=== PATIENT | female | born 1930 | race Caucasian/White ===

== ENCOUNTER 2017-10-13 11:09 | Outpatient (CLI) ==
[2017-08-03 16:02] VITALS: BMI 18.7
== END 2017-10-13 11:10 | disposition home or self-care (01) ==
LOC: NONPT 11:09
PROVIDERS: ATTEND Internal Medicine
DX: I10 Essential (primary) hypertension (principal); Z79.899 Other long term (current) drug therapy
CPT/HCPCS: 80053; 85025

== ENCOUNTER 2018-04-01 20:03 | Outpatient (CLI) ==
[2017-08-03 16:02] VITALS: BMI 18.7
== END 2018-04-01 20:45 | disposition short-term general hospital (02) ==
LOC: AMBL 20:03
PROVIDERS: ATTEND Family Medicine
DX: S09.92XA Unspecified injury of nose, initial encounter (principal); R04.0 Epistaxis; K08.4 Partial loss of teeth; S69.92XA Unspecified injury of left wrist, hand and finger(s), initial encounter; W19.XXXA Unspecified fall, initial encounter; Y92.129 Unspecified place in nursing home as the place of occurrence of the external cause; F03.90 Unspecified dementia, unspecified severity, without behavioral disturbance, psychotic disturbance, mood disturbance, and anxiety

== ENCOUNTER 2018-11-02 16:09 | Emergency (ER) ==
--- NOTE | 2018-11-02 16:20 | ED.PDOC ---
General ED Provider: Dr. POONAM MENDEZ Chief Complaint: Fall Stated Complaint: FELL AT THE nh UNWITNESED NO loc Time Seen by Physician: 16:20 Mode of Arrival: Ambulance Information Source: Patient, Family Exam Limitations: No limitations Primary Care Provider: SAM WHITE Nursing and Triage Documentation Reviewed and Agree: Yes Does patient meet sepsis criteria?: No System Inflammatory Response Syndrome: Not Applicable Sepsis Protocol: For patient's 13 years and over: Temp is 96.8 and below OR 101 and greater Pulse >90 BPM Resp >20/minute Acutely Altered Mental Status Are patient's symptoms suggestive of a new infection, such as: -Pneumonia -Skin, Soft Tissue -Endocarditis -UTI -Bone, Joint Infection -Implantable Device -Acute Abdominal Infection -Wound Infection -Meningitis -Blood Stream Catheter Infection -Unknown Trauma/Injury Complaint Exam - Facial Injury Complaint/Exam Location of Pain: Reports: Left, Eyebrow Mechanism of Injury: Reports: Trauma Onset/Duration: TODAY FELL LACERTATED LEFT EYBRPOW AREA Symptoms Are: Still present Onset of Pain: Reports: Immediate, Weeks Initial Severity: Mild Current Severity: Mild Location: Reports: Discrete Character: Reports: Aching Alleviating: Reports: Rest, Ice Aggravating: Reports: None Associated Signs and Symptoms: Reports: Bruising. Denies: Loss of consciousness Related Surgical History: Reports: None Facial Findings: Present: Erythema, Abrasion Differential Diagnoses: Abrasion Review of Systems - Review Of Systems Constitutional: Reports: No symptoms Eyes: Reports: No symptoms Ears, Nose, Mouth, Throat: Reports: No symptoms Respiratory: Reports: No symptoms Cardiac: Reports: No symptoms GI: Reports: No symptoms : Reports: No symptoms Musculoskeletal: Reports: No symptoms Skin: Reports: No symptoms Neurological: Reports: No symptoms Endocrine: Reports: No symptoms Hematologic/Lymphatic: Reports: No symptoms All Other Systems: Reviewed and Negative Past Medical History - Past Medical History Previously Healthy: Yes Endocrine: Reports: None Cardiovascular: Reports: None Respiratory: Reports: None Hematological: Reports: None Gastrointestinal: Reports: None Genitourinary: Reports: None Neuro/Psych: Reports: None Musculoskeletal: Reports: None Cancer: Reports: None Last Menstrual Period: n/a - Surgical History General Surgical History: Reports: None - Family History Family History: Reports: None - Social History Smoking Status: Current every day smoker, Never smoker, Light tobacco smoker - Immunizations Tetanus Shot up to Date: Yes Influenza Vaccine within 12 Months: Yes Pneumococcal Vaccine up to Date: No Physical Exam - Physical Exam Appearance: Thin Ill-appearing: Mild Pain Distress: Mild Eyes: KYLE ENT: Ears normal Neck: Supple Respiratory: Airway patent Cardiovascular: RRR GI/: Soft Musculoskeletal: Normal strength Skin: Warm Neurological: Sensation intact Critical Care Note - Critical Care Note Total Time (mins): 0 Course - Course Orders, Labs, Meds: Orders Category Date Time Status CHEST, 1V AP ONLY Stat RADS 11/02/18 16:[address] HEAD W/O CONTRAST Stat RADS 11/02/18 16:33 Completed Vital Signs: Temp Pulse Resp BP Pulse Ox 11/02/18 16:10 96.9 F L 80 20 166/66 H 98 Departure - Departure Time of Disposition: 18:40 Disposition: TRANSFER [facility] Discharge Problem: Head injury without fracture of skull Instructions: Laceration (ED), Head Injury (ED), Steristrips (ED) Condition: Good Pt referred to PMD for follow-up: No (return to [place] follow with regular Provider) IPMP verified?: No Additional Instructions: keep are clean and dry. try to keep from picking at wound. watch for any signs of infection. follow up with patient's doctor Allergies/Adverse Reactions: Allergies No Known Allergies Allergy (Unverified 08/03/17 16:40) Home Medications: Ambulatory Orders Acetaminophen 2 tab PO Q4H PRN 11/02/18 Aspirin [Aspirin Chewable] 81 mg PO DAILYWM 11/02/18 Benztropine Mesylate 1 mg PO BID 11/02/18 Cyanocobalamin (Vitamin B-12) [Cyanocobalamin Injection] 1,000 mcg IJ MONTHLY Donepezil HCl [Aricept] 5 mg PO BEDTIME 11/02/18 Famotidine/Ca Carb/Mag Hydrox [Tums Dual Action Tablet Chew] 2 each PO Q4H PRN 11/02/18 Ferrous Sulfate 325 mg PO BID 11/02/18 Levothyroxine Sodium [Synthroid] 125 mcg PO DAILY 11/02/18 Losartan Potassium [Cozaar] 25 mg PO BID 11/02/18 Olanzapine [Zyprexa] 2.5 mg PO DAILY 11/02/18 Olanzapine [Zyprexa] 2.5 mg PO EVERY OTHER DAY 11/02/18 Pantoprazole Sodium [Protonix] 40 mg PO DAILY 11/02/18 Tramadol HCl 50 mg PO Q12H PRN 11/02/18 Trazodone HCl 100 mg PO BEDTIME 11/02/18
[2018-11-02 16:24] VITALS: BP 166/66; TEMP 96.9; BMI 21.3
--- NOTE | 2018-11-02 17:00 | DI ---
Exam: Single view of the chest. Comparison: 08/07/2017. Reason for exam: Cough. FINDINGS: No pneumothorax, pleural effusion, or focal consolidation. The cardiac silhouette is prom inent in size. There is diffuse osseous demineralization seen throughout. Calcifications are seen w ithin the aorta. Impression: No acute cardiopulmonary process with similar appearing cardiomegaly in the setting of chronic lung d isease.
--- NOTE | 2018-11-02 17:13 | CT ---
EXAM: CT brain without contrast HISTORY: Fall TECHNIQUE: CT of the brain without intravenous contrast FINDINGS: There is no acute hemorrhage midline shift or mass effect. No hydrocephalus or abnormal e xtra-axial fluid collection. Generalized involutional atrophy, moderate. Chronic microvascular baron ges white matter tracts, moderate. No acute large vessel territorial infarct is seen. The bony cran ium appears normal. The visualized paranasal sinuses are clear. Soft tissues without significant abn ormality. IMPRESSION: 1. Chronic changes as described. No acute intracranial abnormality.
== END 2018-11-02 18:15 ==
LOC: ED 16:09
DX: S01.112A Laceration without foreign body of left eyelid and periocular area, initial encounter (principal); W19.XXXA Unspecified fall, initial encounter; Y92.129 Unspecified place in nursing home as the place of occurrence of the external cause; F17.210 Nicotine dependence, cigarettes, uncomplicated; F03.90 Unspecified dementia, unspecified severity, without behavioral disturbance, psychotic disturbance, mood disturbance, and anxiety
CPT/HCPCS: 99283

== ENCOUNTER 2018-12-29 17:28 | Inpatient (IN) ==
--- NOTE | 2018-12-29 17:52 | ED.PDOC ---
General ED Provider: Dr. ZACKERY CHRISTOPHER Chief Complaint: Fall Stated Complaint: Fell earlier today.Her daughter states her mother has the flu and will not stay in her room. Today she states her mother fell this afternoon and has small abrasion on the back of her head. No LOC and no change in mental status. Daughter believes her mothers has not been acting right for over a week but suffers from dementia. Time Seen by Physician: 17:40 Mode of Arrival: Wheelchair Information Source: Patient, [facility] Exam Limitations: No limitations Primary Care Provider: SAM CALVIN Nursing and Triage Documentation Reviewed and Agree: Yes Does patient meet sepsis criteria?: No System Inflammatory Response Syndrome: Not Applicable Sepsis Protocol: For patient's 13 years and over: Temp is 96.8 and below OR 101 and greater Pulse >90 BPM Resp >20/minute Acutely Altered Mental Status Are patient's symptoms suggestive of a new infection, such as: -Pneumonia -Skin, Soft Tissue -Endocarditis -UTI -Bone, Joint Infection -Implantable Device -Acute Abdominal Infection -Wound Infection -Meningitis -Blood Stream Catheter Infection -Unknown Review of Systems - Review Of Systems Constitutional: Reports: Weakness Eyes: Reports: No symptoms Ears, Nose, Mouth, Throat: Reports: No symptoms Respiratory: Reports: Cough Cardiac: Reports: No symptoms GI: Reports: No symptoms, Poor appetite : Reports: Other (Reduced output) Musculoskeletal: Reports: Back pain Skin: Reports: No symptoms Neurological: Reports: Emotional problems, Cognitive dysfunction Endocrine: Reports: No symptoms Hematologic/Lymphatic: Reports: No symptoms All Other Systems: Reviewed and Negative Past Medical History - Past Medical History Previously Healthy: Yes Endocrine: Reports: None Cardiovascular: Reports: None Respiratory: Reports: None Hematological: Reports: None Gastrointestinal: Reports: None Genitourinary: Reports: None Neuro/Psych: Reports: None Musculoskeletal: Reports: None Cancer: Reports: None Last Menstrual Period: na - Surgical History General Surgical History: Reports: None - Family History Family History: Reports: None - Social History Smoking Status: Former smoker Hx Substance Use: No Alcohol Screening: None - Immunizations Tetanus Shot up to Date: No Influenza Vaccine within 12 Months: Yes Pneumococcal Vaccine up to Date: No Physical Exam - Physical Exam Appearance: Well-appearing, No pain distress, Well-nourished Eyes: KYLE, EOMI, Conjunctiva clear ENT: Ears normal, Nose normal, Oropharynx normal Respiratory: Airway patent, Breath sounds clear, Breath sounds diminished Cardiovascular: RRR, Pulses normal, No rub, No murmur GI/: Soft, Nontender, No masses, Bowel sounds normal, No Organomegaly Musculoskeletal: Normal strength, ROM intact, No edema, No calf tenderness Skin: Warm, Dry, Normal color Neurological: Sensation intact, Motor intact, Reflexes intact, Cranial nerves intact, Alert, Oriented Psychiatric: Affect appropriate, Mood appropriate Physician Notification - Case Discussed Physician Notified: Dr Calvin (if CT reveals abnormality call Dr Calvin Time of Notification: 19:15 (Admit Call results of CT Head) Critical Care Note - Critical Care Note Total Time (mins): 60 Course - Course Hematology/Chemistry: 12/31/18 04:20 12/31/18 04:20 Orders, Labs, Meds: Lab Review 12/29/18 12/29/18 17:59 17:59 WBC 3.60 L RBC 3.65 L Hgb 10.1 L Hct 32.1 L MCV 87.9 MCH 27.7 MCHC 31.5 L RDW Coeff of Larissa 14.6 Plt Count 178 Immature Gran % (Auto) 0.0 Neut % (Auto) 60.8 Lymph % (Auto) 18.6 [place] % (Auto) 19.7 H Eos % (Auto) 0.3 Baso % (Auto) 0.6 Immature Gran # (Auto) 0.0 Neut # (Auto) 2.2 Lymph # (Auto) 0.7 [place] # (Auto) 0.7 Eos # (Auto) 0.0 Baso # (Auto) 0.0 Sodium 138.1 Potassium 4.01 Chloride 105.0 Carbon Dioxide 25.5 Anion Gap 11.61 BUN 21.9 H Creatinine 0.95 Estimated GFR (MDRD) 56.00 BUN/Creatinine Ratio 23.05 Glucose 94.5 Calcium 8.89 Total Bilirubin 0.28 AST 22.4 ALT 14.5 Alkaline Phosphatase 81.5 Total Protein 6.63 Albumin 4.05 Globulin 2.58 Albumin/Globulin Ratio 1.56 Orders Category Date Time Status ADMIT PATIENT INPATIENT .TO [facility] (MONITORED BED) ADMISSION 12/29/18 20: 32 Active EKG-(ED ONLY) Stat CARDIO 12/29/18 17:52 Completed ACTIVITY .BR with BRP CARE 12/29/18 19:37 Active INTAKE & OUTPUT Q8HR CARE 12/29/18 19:37 Active TELEMETRY MONITORING TELE CARE 12/29/18 20:32 Active VITAL SIGNS Q8HR CARE 12/29/18 19:37 Active SOFT DIET DIETARY 12/29/18 Dinner Completed IV [ED IV/MEDIPORT/POWERPORT] .ONCE EMERGENCY 12/29/18 19:40 Active RESUSCITATION [ED CODE STATUS] .ONCE EMERGENCY 12/29/18 20:21 Active CBC W/ AUTO DIFF DAILY@0600 LAB 12/30/18 05:30 Completed CBC W/ AUTO DIFF DAILY@0600 LAB 12/31/18 04:20 Completed CBC W/ AUTO DIFF Stat LAB 12/29/18 17:59 Completed CMP [COMPREHENSIVE METABOLIC PANEL] Stat LAB 12/29/18 17:59 Completed COMPREHENSIVE METABOLIC PANEL DAILY@0600 LAB 12/30/18 05:30 Completed COMPREHENSIVE METABOLIC PANEL DAILY@0600 LAB 12/31/18 04:20 Completed CREATINE KINASE Q8H LAB 12/30/18 09:40 Completed TROPONIN I Q8H LAB 12/30/18 09:40 Completed UA [URINALYSIS C & S IF INDICATED] Stat LAB 12/29/18 17:52 Completed 0.9 % Sodium Chloride [Saline Flush] MEDS 12/29/18 19:40 Discontinued 1 syr IVF PRN PRN Acetaminophen [Tylenol] MEDS 12/29/18 19:37 Discontinued 650 mg PO Q4H PRN Acetaminophen [Tylenol] MEDS 12/29/18 19:42 Discontinued 650 mg PO Q4H PRN Aspirin [Aspirin Chewable] MEDS 12/30/18 08:00 Discontinued 81 mg PO DAILYWM Benztropine Mesylate [Cogentin] MEDS 12/30/18 09:00 Discontinued 1 mg PO BID Ceftriaxone Sodium [Rocephin] 1 gm MEDS 12/29/18 20:00 Discontinued 0.9 % Sodium Chloride [Sodium Chloride] 50 ml IV DAILY Dexamethasone 4 mg/ml Inj [Decadron 4 mg/ml Sdv] MEDS 12/29/18 19:07 Discontinued 4 mg IVP ONCE STA Donepezil HCl [Aricept] MEDS 12/29/18 21:00 Discontinued 5 mg PO BEDTIME Famotidine/Ca Carb/Mag Hydrox [Tums Dual Action Tablet MEDS 12/29/18 19:42 Discontinued Chew] 2 each PO Q4H PRN Levothyroxine Sodium [Synthroid] MEDS 12/30/18 09:00 Discontinued 125 mcg PO DAILY Losartan Potassium [Cozaar] MEDS 12/29/18 21:00 Discontinued 25 mg PO BID Olanzapine [Zyprexa] MEDS 12/30/18 09:00 Discontinued 2.5 mg PO DAILY Oseltamivir Phosphate [Tamiflu] MEDS 12/29/18 19:07 Discontinued 75 mg PO ONCE STA Pantoprazole Sodium [Protonix] MEDS 12/30/18 09:00 Discontinued 40 mg PO QDAC Sodium Chloride 0.9% [Sodium Chloride] 1,000 ml MEDS 12/29/18 18:38 Discontinued IV 125 mls/hr Trazodone HCl [Trazodone HCl] MEDS 12/29/18 21:00 Discontinued 100 mg PO BEDTIME RESUSCITATION STATUS Routine OTHERS 12/29/18 19:37 Completed RESUSCITATION STATUS Routine OTHERS 12/29/18 19:37 Ordered CHEST, 1V AP ONLY Stat RADS 12/29/18 19:[address] HEAD W/O CONTRAST Stat RADS 12/29/18 19:11 Completed Medications Discontinued Medications Generic Name Dose Route Start Last Admin Trade Name Freq PRN Reason Stop Dose Admin Acetaminophen 650 mg 12/29/18 19:37 Tylenol PO Q4H PRN pain on temperature elevation Acetaminophen 650 mg 12/29/18 19:42 Tylenol PO Q4H PRN Pain Aspirin 81 mg 12/30/18 08:00 01/01/19 09:31 Aspirin Chewable PO 81 mg DAILYWM YOLANDA Administration Benztropine Mesylate 1 mg 12/30/18 09:00 01/01/19 09:32 Cogentin PO 1 mg BID YOLANDA Administration Cefdinir 300 mg 12/31/18 09:30 01/01/19 09:31 Omnicef PO 01/03/19 09:29 300 mg Q12HR YOLANDA Administration Dexamethasone Sodium Phosphate 4 mg 12/29/18 19:07 12/29/18 20:29 Decadron 4 Mg/Ml Sdv IVP 12/29/18 19:08 4 mg ONCE STA Administration Donepezil HCl 5 mg 12/30/18 21:00 12/31/18 20:45 Aricept PO 5 mg BEDTIME YOLANDA Administration Ferrous Sulfate 324 mg 12/30/18 09:00 01/01/19 09:32 Ferrous Sulfate PO 324 mg BID YOLANDA Administration Haloperidol 1 mg 12/31/18 09:25 12/31/18 13:42 Haldol PO 1 mg Q8H PRN Administration Agitation Sodium Chloride 1,000 mls @ 125 mls/hr 12/29/18 18:38 12/29/18 20:29 Sodium Chloride IV 12/30/18 02:37 125 mls/hr .Q8H STA Administration Ceftriaxone Sodium 1 gm/ 50 mls @ 75 mls/hr 12/29/18 20:00 12/31/18 11:26 Sodium Chloride IV 01/01/19 19:59 Not Given DAILY YOLANDA Levothyroxine Sodium 100 mcg 12/30/18 09:00 01/01/19 05:36 Synthroid PO 100 mcg QDAC YOLANDA Administration Levothyroxine Sodium 25 mcg 12/30/18 09:00 01/01/19 05:35 Synthroid PO 25 mcg QDAC YOLANDA Administration Losartan Potassium 25 mg 12/29/18 21:00 01/01/19 09:32 Cozaar PO 25 mg BID YOLANDA Administration Non-Formulary Medication 5 mg 12/29/18 21:00 12/29/18 23:43 Donepezil Hcl [Aricept] PO Not Given BEDTIME YOLANDA Non-Formulary Medication 2 each 12/29/18 19:42 Famotidine/Ca Carb/Mag Hydrox [Tums Dual Action Tablet Chew] PO Q4H PRN Heartburn Non-Formulary Medication 125 mcg 12/30/18 09:00 Levothyroxine Sodium [Synthroid] PO DAILY YOLANDA Non-Formulary Medication 100 mg 12/29/18 21:00 12/29/18 23:44 Trazodone Hcl [Trazodone Hcl] PO Not Given BEDTIME YOLANDA Olanzapine 2.5 mg 12/30/18 09:00 01/01/19 09:32 Zyprexa PO 2.5 mg DAILY YOLANDA Administration Olanzapine 2.5 mg 12/31/18 21:00 12/31/18 20:45 Zyprexa PO 2.5 mg EVERY OTHER DAY@2100 YOLANDA Administration Oseltamivir Phosphate 75 mg 12/29/18 19:07 12/29/18 20:29 Tamiflu PO 12/29/18 19:08 75 mg ONCE STA Administration Oseltamivir Phosphate 75 mg 12/30/18 12:30 12/30/18 12:26 Tamiflu PO 01/03/19 12:29 Not Given Q12HR YOLANDA Oseltamivir Phosphate 30 mg 12/31/18 09:00 01/01/19 09:32 Tamiflu PO 01/03/19 22:59 30 mg BID YOLANDA Administration Pantoprazole Sodium 40 mg 12/30/18 09:00 01/01/19 05:36 Protonix PO 40 mg QDAC YOLANDA Administration Sodium Chloride 1 syr 12/29/18 19:40 Saline Flush IVF PRN PRN To flush IV Trazodone HCl 100 mg 12/30/18 21:00 12/31/18 20:42 Desyrel PO 100 mg BEDTIME YOLANDA Administration Vital Signs: Temp Pulse Resp BP Pulse Ox 12/29/18 17:29 97.8 F 86 20 115/65 100 Departure - Departure Time of Disposition: 19:30 Disposition: ADMITTED INPATIENT Discharge Problem: Altered mental status, Influenza A (H1N1), Closed head injury, Dementia, Pneumonia involving right lung Condition: Stable Pt referred to PMD for follow-up: Yes (dr calvin) MP verified?: No Allergies/Adverse Reactions: Allergies No Known Allergies Allergy (Unverified 08/03/17 16:40) Home Medications: Ambulatory Orders Acetaminophen 2 tab PO Q4H PRN 11/02/18 Aspirin [Aspirin Chewable] 81 mg PO DAILYWM 11/02/18 Benztropine Mesylate 1 mg PO BID 11/02/18 Cyanocobalamin (Vitamin B-12) [Cyanocobalamin Injection] 1,000 mcg IJ MONTHLY Famotidine/Ca Carb/Mag Hydrox [Tums Dual Action Tablet Chew] 2 each PO Q4H PRN 11/02/18 Ferrous Sulfate 325 mg PO BID 11/02/18 Levothyroxine Sodium [Synthroid] 125 mcg PO DAILY 11/02/18 Losartan Potassium [Cozaar] 25 mg PO BID 11/02/18 Olanzapine [Zyprexa] 2.5 mg PO DAILY 11/02/18 Olanzapine [Zyprexa] 2.5 mg PO EVERY OTHER DAY 11/02/18 Pantoprazole Sodium [Protonix] 40 mg PO DAILY 11/02/18 Trazodone HCl 100 mg PO BEDTIME 11/02/18 Cefdinir [Omnicef] 300 mg PO Q12HR #7 capsule 01/01/19 Oseltamivir Phosphate [Tamiflu] 30 mg PO BID #4 capsule 01/01/19 Disposition Discussed With: Patient ( Calvin), Family Neurological Complaint Exam - Altered Mental Status Complaint/Exam Current Mental Status: Confusion Last Known Well: 1 week Onset: Gradual Duration: 1 week Symptoms Are: Still present Timing: Constant Initial Severity: Mild Current Severity: Mild Eye Deviation Present: No Character: Reports: Agitation Aggravating: Reports: Unknown Alleviating: Reports: Unknown Associated Signs and Symptoms: Reports: Weakness Related History: Reports: Similar episode Cardiac Risk Factors: Reports: None CVA Risk Factors: Reports: None Related Surgical History: Reports: None Carotid Bruit Present: No Nystagmus Present: No Gag Reflex Present: Yes Meningeal Signs Positive: No Focal Weakness: Present: None Focal Sensory Loss: Present: None Gait: Abnormal Babinski Sign: Negative Right, Negative Left Heel to Toe Normal: No Signs of Injury: Present: Contusion (back head midline) Thrombolytics Considered: No Differential Diagnoses: Metabolic Disorder, Other (Dementia/ Scalp Contusio ) Skin Complaint Exam - Skin/Soft Tissue Complaint/Exam Onset/Duration: today Symptoms Are: Still present Timing: Constant Initial Severity: Mild Current Severity: Mild Location: posterior scalp Character: Reports: Swelling Aggravating: Reports: None Alleviating: Reports: None Associated Signs and Symptoms: Denies: Fever, Chills, Itching, Drainage, Bruising, Tenderness, Red streaks, Joint swelling Related History: Reports: Recent trauma Related Surgical History: Reports: None Recent Exposure to Others w/Similar Symptoms: Yes Skin Findings: Present: Normal findings (minimal edema posterior parietal occiptal region midline , no tenderness) Joint Tenderness Present: No Differential Diagnoses: Other (scalp contusion )
[2018-12-29] MEDS ORDERED: SODIUM CHLORIDE 1,000 ML IV STA (18:38)
[2018-12-29] MEDS ORDERED: DECADRON 4 MG/ML SDV IVP STA (19:07)
[2018-12-29] MEDS ORDERED: TAMIFLU PO STA (19:07)
[2018-12-29] MEDS ORDERED: TYLENOL PO PRN ×2 (19:37→19:42)
[2018-12-29] MEDS ORDERED: ZOFRAN 4 MG/2 ML IVP PRN (19:37)
[2018-12-29] MEDS ORDERED: CA CARB PO PRN (19:42)
[2018-12-29] MEDS ORDERED: FAMOTIDINE PO PRN (19:42)
[2018-12-29] MEDS ORDERED: [UNRECOGNIZED DRUG - OTHER] PO PRN (19:42)
--- NOTE | 2018-12-29 20:03 | CT ---
EXAM: CT head without contrast 12/02/2018. Sagittal and coronal reformatted images obtained HISTORY: Fall. Head trauma COMPARISON: 11/02/2018 FINDINGS: There is no evidence of intracranial hemorrhage. The midline is maintained. There is no h ydrocephalus. Generalized atrophy. Chronic small vessel ischemic changes. No cerebellar tonsillar ectopia. Evaluation of the calvarium shows no fracture. The mastoid air cells are normally pneumati zed. IMPRESSION: No acute intracranial abnormality.
[2018-12-29] MEDS ORDERED: NON-FORMULARY MEDICATION (Donepezil Hcl [Aricept] 5 MG) PO SCH (21:00)
[2018-12-29] MEDS ORDERED: NON-FORMULARY MEDICATION (Trazodone Hcl [Trazodone Hcl] 100 MG) PO SCH (21:00)
[2018-12-29 21:49] VITALS: BMI 20.6
[2018-12-29] MEDS: ROCEPHIN 1 GM in SODIUM CHLORIDE 50 ML IV SCH (23:43)
[2018-12-29] MEDS: COZAAR PO SCH (23:43)
--- NOTE | 2018-12-30 08:14 | DI ---
EXAM: Single view chest. HISTORY: Flu symptoms COMPARISON: 11/02/2018 FINDINGS: Examination is limited secondary to patient rotation. The heart is borderline enlarged. C alcified plaques overlie the aorta. Pulmonary vascularity is within normal limits. Right basilar op acities are seen. The bones appear osteopenic. IMPRESSION: Right basilar infiltrates versus atelectasis. Limited exam secondary to patient rotation. Recommend follow-up two-view chest radiograph series for better visualization of the lung zones. Borderline cardiomegaly.
[2018-12-30] MEDS: SYNTHROID PO SCH ×2 (08:25)
[2018-12-30] MEDS: COGENTIN PO SCH ×2 (08:25→20:50)
[2018-12-30] MEDS: FERROUS SULFATE PO SCH ×2 (08:25→20:50)
[2018-12-30] MEDS: ROCEPHIN 1 GM in SODIUM CHLORIDE 50 ML IV SCH (08:25)
[2018-12-30] MEDS: COZAAR PO SCH ×2 (08:26→20:50)
[2018-12-30] MEDS: PROTONIX PO SCH (08:26)
[2018-12-30] MEDS: ASPIRIN CHEWABLE PO SCH (08:26)
[2018-12-30] MEDS: ZYPREXA PO SCH (08:26)
[2018-12-30] MEDS ORDERED: NON-FORMULARY MEDICATION (Levothyroxine Sodium [Synthroid] 125 MCG) PO SCH (09:00)
[2018-12-30] MEDS ORDERED: NON-FORMULARY MEDICATION (Ferrous Sulfate [Ferrous Sulfate] 325 MG) PO SCH (09:00)
[2018-12-30] MEDS ORDERED: TAMIFLU ONE (12:22)
[2018-12-30] MEDS: TAMIFLU PO SCH ×2 (12:26→20:57)
[2018-12-30] MEDS ORDERED: HALDOL IVP PRN (18:50)
[2018-12-30] MEDS: ARICEPT PO SCH (20:50)
[2018-12-30] MEDS: DESYREL PO SCH (20:51)
[2018-12-31] MEDS: PROTONIX PO SCH (05:46)
[2018-12-31] MEDS: SYNTHROID PO SCH ×2 (05:46)
[2018-12-31 06:30] VITALS: BP 133/67; TEMP 97.8
[2018-12-31] MEDS ORDERED: HALDOL PO PRN (09:25)
--- NOTE | 2018-12-31 10:02 | PCM.PROG ---
Attending Provider: ATTENDING PROVIDER: Dr. SAM WHITE DATE OF SERVICE: 12/31/18 SUBJECTIVE: This 88 year old WHITE/ F was hospitalized 12/29/18 with Flu A with bronchitis. The is patient is much better, not coughing much. She didn't sleep last night. She is demented but alert and talks. REVIEW OF SYSTEMS: CONSTITUTIONAL: No night sweats. No fatigue, malaise, lethargy. No fever or chills. HEENT: Eyes: No visual changes. No eye pain. No eye discharge. ENT: No runny nose. No epistaxis. No sinus pain. No odynophagia. No congestion. RESPIRATORY: No cough, no congestion. No hemoptysis. No shortness of breath. CARDIOVASCULAR: No angina symptoms. No CHF symptoms. No atypical chest pain for CAD. No palpitations. No orthopnea.. GASTROINTESTINAL: Appetite is acceptable. No abdominal pain. No nausea or vomiting. No diarrhea or constipation. No hematemesis. No hematochezia. GENITOURINARY: No urgency. No frequency. No dysuria. No hematuria. No obstructive symptoms. No discharge. No pain. No significant abnormal bleeding. MUSCULOSKELETAL: No musculoskeletal pain; no joint swelling. NEUROLOGICAL: Awake, alert, oriented to time, place and person. No headache. No neck pain. No syncope. No seizures. No dizziness. PSYCHIATRIC: Not anxious. No depression. No suicidal thoughts. No homicidal thoughts. SKIN: No rash. No lesions. No wounds. ENDOCRINE: No unexplained weight loss. No weight gain. HEMATOLOGIC/LYMPHATIC: No anemia. No purpura. No petechiae. No prolonged or excessive bleeding. No palpable lymph nodes. PHYSICAL EXAMINATION: GENERAL: The patient is awake, alert and oriented, lying/sitting in bed in no distress. VITAL SIGNS: Temperature 97.8 F, Pulse 81, Respiratory Rate 18, BP 133/67, Pulse Ox 93% HEENT: Head normocephalic, atraumatic. Eyes: Extraocular muscles are intact. Pupils are equal, round and reactive to light and accommodation. Ears: No lesions. Nose appeared normal. Throat: No exudate or erythema. NECK: Supple. No JVD, no carotid bruit. No lymphadenopathy or thyromegaly. LUNGS: Clear to auscultation. Percussion note normal. Chest symmetrical. HEART: S1, S2, no S3. No murmurs. No cyanosis or clubbing. No ascites. Pulses: Dorsalis pedis and posterior tibial pulses +1 to +2 both sides. ABDOMEN: Soft. Non-tender. Bowel sounds active. No CVA tenderness. No mass felt. EXTREMITIES: No edema. Full range of motion of all extremities, equal. NEUROLOGIC: No focal deficit. Cranial nerves II through XII are grossly intact. No headache, no double vision or headache. SKIN: Warm and dry. Intact. Turgor-normal. LYMPHATIC: No palpable lymph nodes/no lymphedema. MUSCULOSKELETAL: Normal joints with no swelling. Muscle tone is normal. LAB REVIEW: 12/31/18 04:20 12/31/18 04:20 12/31/18 04:20: Sodium 140.0, Potassium 3.68, Chloride 108.3 H, Carbon Dioxide 24.7, Anion Gap 10.68, BUN 37.1 H, Creatinine 0.80, Estimated GFR (MDRD) 68.00, BUN/Creatinine Ratio 46.37, Glucose 86.9, Calcium 8.84, Total Bilirubin 0.25, AST 27.2, ALT 15.8, Alkaline Phosphatase 77.1, Total Protein 7.23, Albumin 4.42 , Globulin 2.81, Albumin/Globulin Ratio 1.57 12/31/18 04:20: WBC 2.98 L, RBC 3.91 L, Hgb 10.9 L, Hct 34.4 L, MCV 88.0, MCH 27.9, MCHC 31.7 L, RDW Coeff of Larissa 14.6, Plt Count 200 D, Immature Gran % ( Auto) 0.0, Neut % (Auto) 33.6, Lymph % (Auto) 52.3 H, [place] % (Auto) 12.8 H, Eos % (Auto) 1.0, Baso % (Auto) 0.3, Immature Gran # (Auto) 0.0, Neut # (Auto) 1.0 L , Lymph # (Auto) 1.6, [place] # (Auto) 0.4, Eos # (Auto) 0.0, Baso # (Auto) 0.0 12/30/18 13:32: Urine Color Yellow, Urine Clarity Slightly, Urine pH 5.5, Ur Specific [place] >=1.030, Urine Protein Negative, Urine Glucose (UA) Negative, Urine Ketones Negative, Urine Blood Trace-lysed, Urine Nitrite Negative, Urine Bilirubin Negative, Urine Urobilinogen 0.2, Ur Leukocyte Esterase 1+, Urine Microscopic RBC 5-10, Urine Microscopic WBC 10-20, Ur Squamous Epith Cells 5-10 , Urine Bacteria 2+ 12/30/18 09:40: Total Creatine Kinase 81.2, Troponin I < 0.012 ASSESSMENT: 1. Influenza and bronchitis seems to be resolving. 2. Dementia. PLAN: 1. Possible discharge tomorrow. 2. Regular diet. The daughter is in the room and is happy with management. Plan and coordination of the patient's care discussed in the presence of [employer] and nurse. CONDITION: Stable SCRIBED BY: JANEE BOURGEOIS [employer] Tester scribed while in presence of service performed by Dr. SAM WHITE on 12/31/18 ([id number])
[2018-12-31] MEDS: OMNICEF PO SCH ×2 (10:23→20:46)
[2018-12-31] MEDS: TAMIFLU PO SCH ×2 (10:23→20:45)
[2018-12-31] MEDS: ASPIRIN CHEWABLE PO SCH (10:24)
[2018-12-31] MEDS: COZAAR PO SCH ×2 (10:25→20:43)
[2018-12-31] MEDS: FERROUS SULFATE PO SCH ×2 (10:25→20:44)
[2018-12-31] MEDS: COGENTIN PO SCH ×2 (10:25→20:43)
[2018-12-31] MEDS: ZYPREXA PO SCH (10:27)
[2018-12-31] MEDS: ROCEPHIN 1 GM in SODIUM CHLORIDE 50 ML IV SCH (11:26)
[2018-12-31] MEDS: DESYREL PO SCH (20:42)
[2018-12-31] MEDS: ARICEPT PO SCH (20:45)
[2018-12-31] MEDS ORDERED: ZYPREXA PO SCH (21:00)
[2019-01-01] MEDS: SYNTHROID PO SCH ×2 (05:35→05:36)
[2019-01-01] MEDS: PROTONIX PO SCH (05:36)
--- NOTE | 2019-01-01 08:57 | PCM.PROG ---
Attending Provider: ATTENDING PROVIDER: Dr. SAM WHITE DATE OF SERVICE: 01/01/19 SUBJECTIVE: This 88 year old WHITE/ F was hospitalized 12/29/18 with influenza A and bronchitis, condition is improved. She is confused. Daughter is in the room. No cough or congestion. Cardiovascular status is stable. The daughter wants her taken off Aricept and I agree as she has advanced Alzheimer's with practically no change with Aricept. REVIEW OF SYSTEMS: CONSTITUTIONAL: No night sweats. No fatigue, malaise, lethargy. No fever or chills. HEENT: Eyes: No visual changes. No eye pain. No eye discharge. ENT: No runny nose. No epistaxis. No sinus pain. No odynophagia. No congestion. RESPIRATORY: No cough, no congestion. No hemoptysis. No shortness of breath. CARDIOVASCULAR: No angina symptoms. No CHF symptoms. No atypical chest pain for CAD. No palpitations. No orthopnea.. GASTROINTESTINAL: No abdominal pain. No nausea or vomiting. No diarrhea or constipation. No hematemesis. No hematochezia. GENITOURINARY: No urgency. No frequency. No dysuria. No hematuria. No obstructive symptoms. No discharge. No pain. No significant abnormal bleeding. MUSCULOSKELETAL: No musculoskeletal pain; no joint swelling. NEUROLOGICAL: Confused. No headache. No neck pain. No syncope. No seizures. No dizziness. PSYCHIATRIC: Not anxious. No depression. No suicidal thoughts. No homicidal thoughts. SKIN: No rash. No lesions. No wounds. ENDOCRINE: No unexplained weight loss. No weight gain. HEMATOLOGIC/LYMPHATIC: No anemia. No purpura. No petechiae. No prolonged or excessive bleeding. No palpable lymph nodes. PHYSICAL EXAMINATION: GENERAL: The patient is resting comfortably lying in bed in no distress. VITAL SIGNS: Temperature 97.8 F, Pulse 81, Respiratory Rate 18, BP 133/67, Pulse Ox 93% HEENT: Head normocephalic, atraumatic. Eyes: Extraocular muscles are intact. Pupils are equal, round and reactive to light and accommodation. Ears: No lesions. Nose appeared normal. Throat: No exudate or erythema. NECK: Supple. No JVD, no carotid bruit. No lymphadenopathy or thyromegaly. LUNGS: Clear to auscultation. Percussion note normal. Chest symmetrical. HEART: S1, S2, no S3. No murmurs. No cyanosis or clubbing. No ascites. Pulses: Dorsalis pedis and posterior tibial pulses +1 to +2 both sides. ABDOMEN: Soft. Non-tender. Bowel sounds active. No CVA tenderness. No mass felt. EXTREMITIES: No edema. Full range of motion of all extremities, equal. NEUROLOGIC: No focal deficit. Cranial nerves II through XII are grossly intact. No headache, no double vision or headache. SKIN: Warm and dry. Intact. Turgor-normal. LYMPHATIC: No palpable lymph nodes/no lymphedema. MUSCULOSKELETAL: Normal joints with no swelling. Muscle tone is normal. LAB REVIEW: 12/31/18 04:20 12/31/18 04:20 ASSESSMENT: 1. INFLUENZA A, BRONCHITIS AND DEHYDRATION ALL SEEM TO HAVE RESOLVED. PLAN: 1. Will discharge back to long term. 2. Will discharge on antibiotics and Tamiflu. 3. Discontinue Aricept. Plan and coordination of the patient's care discussed in the presence of Conceptor and nurse. CONDITION: Stable. SCRIBED BY: JANEE BOURGEOIS Mail Clerk scribed while in presence of service performed by Dr. SAM WHITE on 01/01/19 ([id number])
[2019-01-01] MEDS: ASPIRIN CHEWABLE PO SCH (09:31)
[2019-01-01] MEDS: OMNICEF PO SCH (09:31)
[2019-01-01] MEDS: TAMIFLU PO SCH (09:32)
[2019-01-01] MEDS: ZYPREXA PO SCH (09:32)
[2019-01-01] MEDS: COZAAR PO SCH (09:32)
[2019-01-01] MEDS: FERROUS SULFATE PO SCH (09:32)
[2019-01-01] MEDS: COGENTIN PO SCH (09:32)
--- NOTE | 2019-01-01 11:11 | CM.DICTOOL ---
ADMISSION: 12/29/18 20:33 DISCHARGE: JANUARY 01, 2019 DATE OF SERVICE: 01/01/19 FINAL DIAGNOSIS INFLUENZA A HYPERTENSION COPD HYPOTHYROID ANXIETY DEMENTIA ANEMIA LAST VITALS Temp Pulse Resp BP Pulse Ox 97.8 F 81 18 133/67 93 L 12/31/18 06:00 12/31/18 06:00 12/31/18 06:00 12/31/18 06:00 12/31/18 06:00 TAKE THESE MEDICATIONS AT HOME Acetaminophen (Tylenol) 650 mg PO Q4H PRN PRN Reason: pain on temperature elevation Aspirin (Aspirin Chewable) 81 mg PO DAILYWM [facility] Last Admin: 01/01/19 09:31 Dose: 81 mg Benztropine Mesylate (Cogentin) 1 mg PO BID [facility] Last Admin: 01/01/19 09:32 Dose: 1 mg Cefdinir (Omnicef) 300 mg PO Q12HR [facility] FOR 5 DAYS STARTED 12/31/2018 Last Admin: 01/01/19 09:31 Dose: 300 mg Ferrous Sulfate (Ferrous Sulfate) 324 mg PO BID [facility] Last Admin: 01/01/19 09:32 Dose: 324 mg Levothyroxine Sodium (Synthroid) 125 mcg PO QDAC [facility] Last Admin: 01/01/19 05:36 Dose: 125 mcg Losartan Potassium (Cozaar) 25 mg PO BID [facility] Last Admin: 01/01/19 09:32 Dose: 25 mg Non-Formulary Medication (Famotidine/Ca Carb/Mag Hydrox [Tums Dual Action Tablet Chew]) 2 each PO Q4H PRN PRN Reason: Heartburn Olanzapine (Zyprexa) 2.5 mg PO DAILY [facility] Last Admin: 01/01/19 09:32 Dose: 2.5 mg Olanzapine (Zyprexa) 2.5 mg PO EVERY OTHER DAY@2100 [facility] Last Admin: 12/31/18 20:45 Dose: 2.5 mg Oseltamivir Phosphate (Tamiflu) 30 mg PO BID [facility] Stop: 01/03/19 22:59 Last Admin: 01/01/19 09:32 Dose: 30 mg Pantoprazole Sodium (Protonix) 40 mg PO QDAC [facility] Last Admin: 01/01/19 05:36 Dose: 40 mg Trazodone HCl (Desyrel) 100 mg PO BEDTIME [facility] Last Admin: 12/31/18 20:42 Dose: 100 mg ALLERGIES No Known Allergies Allergy (Unverified 08/03/17 16:40) DISCONTINUED MEDICATIONS ARICEPT 5 MG PO AT BEDTIME NEW PRESCRIPTIONS: OMNICEF 300 MG BID FOR 5 DAYS. STARTED 12-31-2018 TAMIFLU 30 MG BID WITH LAST DOSE THE MORNING OF THE 4TH SMOKING: NOT APPLICABLE DISEASE SPECIFIC EDUCATION: NOT APPLICABLE TO PATIENT DUE TO DEMENTIA LAB REVIEW: 12/31/18 04:20 12/31/18 04:20 PLAN: DISCHARGE TO [facility] DIET: REGULAR TOLERATED ACTIVITY: RESUME TOLERATED FLU PRECAUTIONS PER SHELTER PROTOCOL CBC, CMP IN ONE WEEK, THEN EVERY 3 MONTHS LIPIDS, TSH EVERY 6 MONTHS VITAL SIGNS DAILY FOR 1 WEEK, THEN WEEKLY PATIENT IS A DNR PATIENT TO BE SEEN ON [facility]OUNDS IN 7-10 DAYS BY PIERRE DOMINGUEZ APRN MS. ANTONIO IS ALERT TO PERSON. SHE IS DISORIENTED TO TIME AND PLACE. SHE IS DEPENDENT FOR BATHING, BUT IS ABLE TO TRANSFER FROM THE BED TO THE CHAIR AND WALK TO THE BATHROOM WITH 1 PERSON ASSISTANCE. SHE IS IMPULSIVE AND HAS REQUIRED FAMILY TO STAY WITH HER AT TIMES DURING HER HOSPITAL STAY. SHE IS CONTINENT OF BOWEL AND BLADDER, BUT IS ALSO INCONTINENT AT TIMES. MS. ANTONIO FEEDS HERSELF AND DISPLAYS A FAIR APPETITE OF 25-50%. SKIN IS INTACT, BUT PATIENT IS RELUCTANT AND REFUSES TO ALLOW TOUCHING AT TIMES BY NURSING STAFF. SAM WHITE MD
--- NOTE | 2019-01-02 09:57 | DS ---
DATE OF SERVICE: 01/01/19 FINAL DIAGNOSIS: INFLUENZA A HYPERTENSION COPD HYPOTHYROID ANXIETY DEMENTIA ANEMIA LAST VITALS: Temp Pulse Resp BP Pulse Ox 97.8 F 81 18 133/67 93 L 12/31/18 06:00 12/31/18 06:00 12/31/18 06:00 12/31/18 06:00 12/31/18 06:00 DISCHARGE INSTRUCTIONS: DISCHARGE TO [facility]. FLU PRECAUTIONS PER SENIOR LIVING PROTOCOL. CBC, CMP IN ONE WEEK, THEN EVERY 3 MONTHS. LIPIDS, TSH EVERY 6 MONTHS. VITAL SIGNS DAILY FOR 1 WEEK, THEN WEEKLY. PATIENT IS A DNR. TAKE THESE MEDICATIONS AT HOME: Acetaminophen (Tylenol) 650 mg PO Q4H PRN Aspirin (Aspirin Chewable) 81 mg PO DAILYWM [facility] Benztropine Mesylate (Cogentin) 1 mg PO BID [facility] Cefdinir (Omnicef) 300 mg PO Q12HR [facility] Ferrous Sulfate (Ferrous Sulfate) 324 mg PO BID [facility] Levothyroxine Sodium (Synthroid) 125 mcg PO QDAC [facility] Losartan Potassium (Cozaar) 25 mg PO BID [facility] Non-Formulary Medication (Famotidine/Ca Carb/Mag Hydrox [Tums Dual Action Tablet Chew]) 2 each PO Q4H PRN Olanzapine (Zyprexa) 2.5 mg PO DAILY [facility] Olanzapine (Zyprexa) 2.5 mg PO EVERY OTHER DAY@2100 [facility] Oseltamivir Phosphate (Tamiflu) 30 mg PO BID [facility] Pantoprazole Sodium (Protonix) 40 mg PO QDAC [facility] Trazodone HCl (Desyrel) 100 mg PO BEDTIME [facility] ALLERGIES: No Known Allergies Allergy (Unverified 08/03/17 16:40) DISCONTINUED MEDICATIONS: ARICEPT 5 MG PO AT BEDTIME NEW PRESCRIPTIONS: OMNICEF 300 MG BID FOR 5 DAYS. STARTED 12-31-2018 TAMIFLU 30 MG BID WITH LAST DOSE THE MORNING OF THE SMOKING: NOT APPLICABLE DISEASE SPECIFIC EDUCATION: NOT APPLICABLE TO PATIENT DUE TO DEMENTIA DIET: REGULAR TOLERATED ACTIVITY: RESUME TOLERATED HOSPITAL COURSE: 88 year old white female hospitalized with Flu A, bronchitis. The patient also was dehydrated. The patient was given IV fluids, Rocephin with steroids was given. The patient's condition improved remarkably. She was up and about confused. Appetite has improved. Condition at the time of discharge is stable. The patient has been taken off Aricept on request of the patient's family and I support it because Aricept had not improved her memory. Her dementia had been worsening. She is up and about but confused practically all the time. Condition at the time of discharge is stable. TIME SPENT: More than 60 minutes. RAFITA
--- NOTE | 2019-01-02 09:58 | PN ---
12/29/18: Level 5 12/30/18: Intermediate 12/31/18: Intermediate 01/01/19: D as in discharge MTDD
--- NOTE | 2019-01-03 13:06 | PN ---
DATE OF SERVICE: 12/29/18 SUBJECTIVE: 88-year-old white female, resident of the halfway was sent from the [facility] because of positive influenza and worsening of overall mental status and condition. Originally the patient was seen by Radha Taylor, Nurse Practitioner, and was advised hospitalization but the family declined. The patient was seen and examined in the emergency room by ER physician, Dr. Abernathy. The patient had fallen at the halfway and hit her head. The patient will have CT scan of the head done. PHYSICAL EXAMINATION: HEENT: Head normocephalic, atraumatic. Eyes: Extraocular muscles are intact. Pupils are equal, round and reactive to light and accommodation. Ears: No lesions. Nose appeared normal. Throat: No exudate or erythema. NECK: Supple. No JVD, no carotid bruit. No lymphadenopathy or thyromegaly. LUNGS: Clear to auscultation by Dr. Abernathy. Percussion note normal. Chest symmetrical. HEART: S1, S2, no S3. No murmurs. No cyanosis or clubbing. No ascites. Pulses: Dorsalis pedis and posterior tibial pulses +1 to +2 bilaterally. ABDOMEN: Soft. Nontender. Bowel sounds active. No CVA tenderness. No mass felt. EXTREMITIES: No edema. Full range of motion of all extremities, equal. NEUROLOGIC: No focal deficit. Cranial nerves II through XII are grossly intact. No headache, no double vision or headache. SKIN: Not dry. Intact. Turgor - normal. LYMPHATIC: No palpable lymph nodes/no lymphedema. MUSCULOSKELETAL: Normal joints with no swelling. Muscle tone is normal. ASSESSMENT: 1. INFLUENZA A POSITIVE WITH BRONCHITIS. PLAN: 1. Give Tamiflu, antibiotics, steroids. 2. If CT scan of the head is abnormal then the patient will be transferred. CONDITION: Seems to be stable. TIME SPENT: More than 30 minutes. Plan and coordination of the patient's care discussed in the presence of nurse. RAFITA
--- NOTE | 2019-01-03 13:26 | PN ---
DATE OF SERVICE: 12/30/18 SUBJECTIVE: 88-year-old white female hospitalized with influenza. The patient has cough, congestion but this morning, according to the daughter who is present in the room, the patient is a lot better. She is up and about but confused, coughing mildly. REVIEW OF SYSTEMS: CONSTITUTIONAL: No night sweats. No fatigue, malaise, lethargy. No fever or chills. HEENT: Eyes: No visual changes. No eye pain. No eye discharge. ENT: No runny nose. No epistaxis. No sinus pain. No sore throat. No odynophagia. No congestion. RESPIRATORY: Mild cough and congestion. No hemoptysis. No shortness of breath. CARDIOVASCULAR: No angina symptoms. No CHF symptoms. No atypical chest pain for CAD. No palpitations. No PND. No orthopnea. GASTROINTESTINAL: No abdominal pain. No nausea or vomiting. No diarrhea or constipation. No hematemesis. No hematochezia. GENITOURINARY: No urgency. No frequency. No dysuria. No hematuria. No obstructive symptoms. No discharge. No pain. No significant abnormal bleeding. MUSCULOSKELETAL: No musculoskeletal pain; no joint swelling. NEUROLOGICAL: Confusion. No headache. No neck pain. No syncope. No seizures. No dizziness. PSYCHIATRIC: Not anxious. No depression. No suicidal thoughts. No homicidal thoughts. SKIN: No rash. No lesions. No wounds. ENDOCRINE: No unexplained weight loss. No weight gain. HEMATOLOGIC/LYMPHATIC: No anemia. No purpura. No petechiae. No prolonged or excessive bleeding. No palpable lymph nodes. PHYSICAL EXAMINATION: HEENT: Head normocephalic, atraumatic. Eyes: Extraocular muscles are intact. Pupils are equal, round and reactive to light and accommodation. Ears: No lesions. Nose appeared normal. Throat: No exudate or erythema. NECK: Supple. No JVD, no carotid bruit. No lymphadenopathy or thyromegaly. LUNGS: Clear to auscultation. Percussion note normal. Chest symmetrical. HEART: S1, S2, no S3. No murmurs. No cyanosis or clubbing. No ascites. Pulses: Dorsalis pedis and posterior tibial pulses +1 to +2 bilaterally. ABDOMEN: Soft. Nontender. Bowel sounds active. No CVA tenderness. No mass felt. EXTREMITIES: No edema. Full range of motion of all extremities, equal. NEUROLOGIC: No focal deficit. Cranial nerves II through XII are grossly intact. No headache, no double vision or headache. SKIN: Not dry. Intact. Turgor - normal. LYMPHATIC: No palpable lymph nodes/no lymphedema. MUSCULOSKELETAL: Normal joints with no swelling. Muscle tone is normal. LABS: Hemoglobin 11.7, hematocrit 39, WBC 2600, normal differential. Creatinine 0.6, BUN 21, potassium 4.3. ASSESSMENT: 1. INFLUENZA A SEEMS TO BE IMPROVING 2. DEMENTIA, STABLE 3. LEUKOPENIA SECONDARY TO INFLUENZA ADDENDUM: The patient has multiple medical problems like she is a former smoker, recurrent pneumonia, hypothyroidism, hypertension, anxiety disorder, dementia, bipolar disorder, chronic lung disease, generalized muscle weakness, history of falls. TIME SPENT: More than 30 minutes. Plan and coordination of the patient's care discussed in the presence of nurse. RAFITA
== END 2019-01-01 15:35 | DRG 153 ==
LOC: ED 17:28 → SCU 20:33
PROVIDERS: ADMIT Internal Medicine; ATTEND Internal Medicine
DX: J11.1 Influenza due to unidentified influenza virus with other respiratory manifestations (principal); J18.9 Pneumonia, unspecified organism; J44.9 Chronic obstructive pulmonary disease, unspecified; S09.90XA Unspecified injury of head, initial encounter; M54.9 Dorsalgia, unspecified; I10 Essential (primary) hypertension; E86.0 Dehydration; E03.9 Hypothyroidism, unspecified; D64.9 Anemia, unspecified; F03.90 Unspecified dementia, unspecified severity, without behavioral disturbance, psychotic disturbance, mood disturbance, and anxiety; F41.9 Anxiety disorder, unspecified; R05 Cough; R63.0 Anorexia; R41.82 Altered mental status, unspecified
CPT/HCPCS: 36415; 80053; 81001; 82550; 84484; 85025; 87086; 93005; 93010; 96360; 99285

== ENCOUNTER 2021-03-02 10:52 | Inpatient (IN) ==
--- NOTE | 2021-03-02 11:15 | ED.PDOC ---
General ED Provider: Dr. ZACKERY CHRISTOPHER Chief Complaint: Respiratory Complaint Stated Complaint: Reportedly had low O2 sat in the hypoxic range per RN at [facility](in the 70's , once EMT's placed on oxygen increased to 98%) Time Seen by Provider: 03/02/21 11:13 Mode of Arrival: Ambulance Information Source: Family, Group Home and EMT Exam Limitations: Clinical condition and Dementia Primary Care Provider: SAM WHITE Nursing and Triage Documentation Reviewed and Agree: Yes Does patient meet sepsis criteria?: No System Inflammatory Response Syndrome: Not Applicable Sepsis Protocol: For patient's 13 years and over: Temp is 96.8 and below OR 101 and greater Pulse >90 BPM Resp >20/minute Acutely Altered Mental Status Are patient's symptoms suggestive of a new infection, such as: -Pneumonia -Skin, Soft Tissue -Endocarditis -UTI -Bone, Joint Infection -Implantable Device -Acute Abdominal Infection -Wound Infection -Meningitis -Blood Stream Catheter Infection -Unknown Respiratory Complaint Exam Respiratory Complaint/Exam Onset/Duration: This AM Symptoms Are: Resolved Timing: Constant Initial Severity: Severe Current Severity: None Location: Chest Character: Denies Productive cough, Non-productive cough and Dry cough Aggravating: Reports Recumbent position Alleviating: Reports None Associated Signs and Symptoms: Reports Dyspnea; Denies Rapid breathing, Fever, Chills, Chest pain, Pleuritic chest pain, Wheezing, Hemoptysis, Dizziness, Calf pain, Calf swelling, Edema, URI, Nasal congestion, Hoarseness, Sinus discomfort, Vomiting, Sore throat, Weight loss, Decreased oral intake, Increased thirst, Increased appetite and Increased urination Related History: Denies Similar episode History of Healthcare-Acquired Pneumonia: No Related Surgical History: Reports None Pulmonary Embolism Risk Factors: Bedrest Cardiac Risk Factors: Reports None Pseudomonas Risk Factors: Reports None Tuberculosis Risk Factors: Reports None Status Asthmaticus Risk Factors: Reports None Home Oxygen Use: No Recent Stress Test: No Recent Echo/LV Function: No Current Antibiotic Use: No Current Asthma Medication Use: No Respiratory Distress: None Inadequate Respiratory Effort: Yes Dysphagia Present: No Stridor Present: No JVD Present: No Accessory Muscle Use: No Retractions: Inadequate effort Diminished Breath Sounds: Yes Sinus Tenderness: None Grunting Respirations: No Kussmaul Respirations: No Differential Diagnoses: Airway Obstruction and COPD Exacerbation Review of Systems Review Of Systems Constitutional: Reports No symptoms Eyes: Reports No symptoms Ears, Nose, Mouth, Throat: Reports No symptoms Respiratory: Reports Other (low 02 sat) Cardiac: Reports No symptoms GI: Reports No symptoms : Reports No symptoms Musculoskeletal: Reports No symptoms Skin: Reports No symptoms Neurological: Reports No symptoms Endocrine: Reports No symptoms Hematologic/Lymphatic: Reports No symptoms All Other Systems: Reviewed and Negative [facility] Medical History (Updated 03/04/21 @ 09:05 by JANEE BOURGEOIS) Alzheimer disease Anxiety Aphasia Bipolar 1 disorder Chronic anemia COPD (chronic obstructive pulmonary disease) Dementia Depressive disorder GERD (gastroesophageal reflux disease) Hypertension Hypothyroid Social History History of recent travel: No Female Reproductive History Menstrual Hx Hysterectomy: No Hx Tubal Ligation: No Physical Exam Physical Exam Appearance: Reports Ill-appearing and Thin Ill-appearing: Mild Pain Distress: Not Applicable Eyes: Reports KYLE, EOMI and Conjunctiva clear ENT: Reports Ears normal, Nose normal and Oropharynx normal Neck: Supple Respiratory: Reports Airway patent, Breath sounds clear, Breath sounds equal and Respirations nonlabored Cardiovascular: Reports RRR, Pulses normal, No rub and No murmur GI/: Reports Soft, Nontender, No masses, Bowel sounds normal and No Organomegaly Musculoskeletal: Reports Normal strength, ROM intact, No edema and No calf tenderness Skin: Reports Warm, Dry and Normal color Neurological: Reports Sensation intact, Motor intact, Reflexes intact, Cranial nerves intact, Alert and Oriented Psychiatric: Reports Affect appropriate and Mood appropriate Critical Care Note Critical Care Note Total Critical Care Time (mins): 30 Course Course Hematology/Chemistry: 03/05/21 04:41 03/05/21 04:41 Orders, Labs, Meds: Lab Review 03/02/21 03/02/21 03/02/21 11:20 11:30 11:30 WBC RBC Hgb Hct MCV MCH MCHC RDW Coeff of Larissa Plt Count Immature Gran % (Auto) Neut % (Auto) Lymph % (Auto) Casey % (Auto) Eos % (Auto) Baso % (Auto) Neut # (Auto) Lymph # (Auto) Casey # (Auto) Eos # (Auto) Baso # (Auto) Immature Gran # (Auto) Puncture Site Base Excess O2 Saturation ABG pH ABG pCO2 ABG pO2 ABG HCO3 ABG Total CO2 Tulio Test Hemoglobin Oxyhemoglobin Carboxyhemoglobin Total Hemoglobin O2 Delivery Device FiO2 % Sodium Potassium Chloride Carbon Dioxide Anion Gap BUN Creatinine Estimated GFR (MDRD) BUN/Creatinine Ratio Glucose Lactic Acid Uric Acid 3.20 Calcium Total Bilirubin AST ALT Alkaline Phosphatase Troponin I < 0.012 C-Reactive Prot, Quant Total Protein Albumin Globulin Albumin/Globulin Ratio Procalcitonin < 0.05 Adenovirus (PCR) Not detected B. pertussis DNA (PCR) Not detected B.parapertussis DNA PCR Not detected C. pneumoniae DNA (PCR) Not detected Coronavirus OC43 (PCR) Not detected Coronavirus HKU1 (PCR) Not detected Coronavirus 229E (PCR) Not detected Coronavirus NL63 (PCR) Not detected Human Metapneumovir PCR Not detected Influenza Type A (PCR) Not detected Influenza B (RT-PCR) Not detected M. pneumoniae (PCR) Not detected Parainfluenza 1 (PCR) Not detected Parainfluenza 2 (PCR) Not detected Parainfluenza 3 (PCR) Not detected Parainfluenza 4 (PCR) Not detected RSV (PCR) Not detected Entero/Rhino (PCR) Not detected SARS-CoV-2 (PCR) Not detected 03/02/21 03/02/21 03/02/21 11:38 11:38 11:41 WBC 6.12 RBC 3.85 L Hgb 10.9 L Hct 34.7 L MCV 90.1 MCH 28.3 MCHC 31.4 L RDW Coeff of Larissa 13.8 Plt Count 245 Immature Gran % (Auto) 0.0 Neut % (Auto) 60.9 Lymph % (Auto) 22.5 Casey % (Auto) 14.1 H Eos % (Auto) 2.0 Baso % (Auto) 0.5 Neut # (Auto) 3.7 Lymph # (Auto) 1.4 Casey # (Auto) 0.9 Eos # (Auto) 0.1 Baso # (Auto) 0.0 Immature Gran # (Auto) 0.0 Puncture Site R rad Base Excess -0.4 O2 Saturation 94.1 ABG pH 7.43 ABG pCO2 36.0 ABG pO2 69.0 L ABG HCO3 23.9 ABG Total CO2 25.0 H Tulio Test + Hemoglobin 0.8 Oxyhemoglobin 93.8 L Carboxyhemoglobin 1.1 Total Hemoglobin 10.9 L O2 Delivery Device Ra FiO2 % 21.0 Sodium 139.8 Potassium 3.95 Chloride 109.6 H Carbon Dioxide 22.9 Anion Gap 11.25 BUN 30.8 H Creatinine 0.75 Estimated GFR (MDRD) 73.00 BUN/Creatinine Ratio 41.06 Glucose 93.5 Lactic Acid Uric Acid Calcium 9.00 Total Bilirubin 0.52 AST 44.1 H ALT 25.4 Alkaline Phosphatase 86.1 Troponin I C-Reactive Prot, Quant Total Protein 6.89 Albumin 3.77 Globulin 3.12 Albumin/Globulin Ratio 1.20 Procalcitonin Adenovirus (PCR) B. pertussis DNA (PCR) B.parapertussis DNA PCR C. pneumoniae DNA (PCR) Coronavirus OC43 (PCR) Coronavirus HKU1 (PCR) Coronavirus 229E (PCR) Coronavirus NL63 (PCR) Human Metapneumovir PCR Influenza Type A (PCR) Influenza B (RT-PCR) M. pneumoniae (PCR) Parainfluenza 1 (PCR) Parainfluenza 2 (PCR) Parainfluenza 3 (PCR) Parainfluenza 4 (PCR) RSV (PCR) Entero/Rhino (PCR) SARS-CoV-2 (PCR) 03/02/21 03/02/21 12:56 12:56 WBC RBC Hgb Hct MCV MCH MCHC RDW Coeff of Larissa Plt Count Immature Gran % (Auto) Neut % (Auto) Lymph % (Auto) Casey % (Auto) Eos % (Auto) Baso % (Auto) Neut # (Auto) Lymph # (Auto) Casey # (Auto) Eos # (Auto) Baso # (Auto) Immature Gran # (Auto) Puncture Site Base Excess O2 Saturation ABG pH ABG pCO2 ABG pO2 ABG HCO3 ABG Total CO2 Tulio Test Hemoglobin Oxyhemoglobin Carboxyhemoglobin Total Hemoglobin O2 Delivery Device FiO2 % Sodium Potassium Chloride Carbon Dioxide Anion Gap BUN Creatinine Estimated GFR (MDRD) BUN/Creatinine Ratio Glucose Lactic Acid < 0.50 L Uric Acid Calcium Total Bilirubin AST ALT Alkaline Phosphatase Troponin I C-Reactive Prot, Quant 37 H Total Protein Albumin Globulin Albumin/Globulin Ratio Procalcitonin Adenovirus (PCR) B. pertussis DNA (PCR) B.parapertussis DNA PCR C. pneumoniae DNA (PCR) Coronavirus OC43 (PCR) Coronavirus HKU1 (PCR) Coronavirus 229E (PCR) Coronavirus NL63 (PCR) Human Metapneumovir PCR Influenza Type A (PCR) Influenza B (RT-PCR) M. pneumoniae (PCR) Parainfluenza 1 (PCR) Parainfluenza 2 (PCR) Parainfluenza 3 (PCR) Parainfluenza 4 (PCR) RSV (PCR) Entero/Rhino (PCR) SARS-CoV-2 (PCR) Orders Category Date Time Status ADMIT PATIENT INPATIENT .TO [facility] (MONITORED BED) ADMISSION 03/02/21 12:26 Completed ABG DRAW REQUEST Stat CARDIO 03/02/21 11:29 Completed EKG-(ED ONLY) Stat CARDIO 03/02/21 11:28 Completed EKG-(IP & OP ONLY) Routine CARDIO 03/03/21 06:00 Completed OXYGEN Routine CARDIO 03/02/21 11:20 Completed OXYGEN Routine CARDIO 03/02/21 12:32 Completed ACTIVITY .Complete BR CARE 03/02/21 12:29 Completed BLOOD GLUCOSE MONITORING 0630,1100,1700,2100 CARE 03/02/21 12:29 Completed INTAKE & OUTPUT Q8HR CARE 03/02/21 12:29 Completed INTAKE & OUTPUT Q8HR CARE 03/02/21 12:32 Completed REMINDER: Notify Provider if temp >101.5 PRN CARE 03/02/21 12:32 Completed REMINDER:Breath Sounds&Sputum Production BID CARE 03/02/21 12:32 Completed REMINDER:Notify Provider Pulse<60 or>130 PRN CARE 03/02/21 12:32 Completed REMINDER:Notify if BP<90/60 or >170/110 PRN CARE 03/02/21 12:32 Completed TELEMETRY MONITORING TELE CARE 03/02/21 12:26 Completed VITAL SIGNS Q8HR CARE 03/02/21 12:29 Completed IV [ED IV/MEDIPORT/POWERPORT] .ONCE EMERGENCY 03/02/21 12:27 Completed ABG COOX Stat LAB 03/02/21 11:41 Completed BLOOD CULTURE Routine LAB 03/02/21 12:56 Completed C-REACTIVE PROTEIN Routine LAB 03/02/21 12:56 Completed CBC W/ AUTO DIFF DAILY@0600 LAB 03/03/21 02:20 Completed CBC W/ AUTO DIFF DAILY@0600 LAB 03/04/21 05:10 Completed CBC W/ AUTO DIFF Stat LAB 03/02/21 11:38 Completed CMP [COMPREHENSIVE METABOLIC PANEL] Stat LAB 03/02/21 11:38 Completed COMPREHENSIVE METABOLIC PANEL DAILY@0600 LAB 03/04/21 05:10 Completed LACTIC ACID Stat LAB 03/02/21 12:56 Completed PROCALCITONIN Stat LAB 03/02/21 11:30 Completed RESPIRATORY PANEL 2.1 (PCR) Stat LAB 03/02/21 11:20 Completed TROPONIN I Q8H LAB 03/02/21 11:30 Completed TROPONIN I Q8H LAB 03/03/21 02:20 Completed UA [URINALYSIS C & S IF INDICATED] Stat LAB 03/02/21 18:50 Completed URIC ACID Routine LAB 03/02/21 11:30 Completed 0.9 % Sodium Chloride [Saline Flush] MEDS 03/02/21 12:27 Discontinued 1 syr IVF PRN PRN Ceftriaxone/D5w 1 gm Premix [Rocephin 1 gm/50 ml D5w] MEDS 03/02/21 12:30 Discontinued 1 gm in 50 ml IV DAILY RESUSCITATION STATUS Routine OTHERS 03/02/21 12:27 Completed CHEST, 1V AP ONLY Stat RADS 03/02/21 11:20 Completed PT CONSULT Routine THERAPIES 03/02/21 10:32 Completed Medications Discontinued Medications Generic Name Dose Route Start Last Admin Trade Name Freq PRN Reason Stop Dose Admin Acetaminophen 650 mg 03/02/21 16:18 03/03/21 17:57 Acetaminophen 325 Mg Tablet PO 650 mg Q4H PRN Administration mild to moderate pain Aspirin 81 mg 03/03/21 08:30 03/05/21 08:48 Aspirin 81 Mg Tab.Chew PO 81 mg DAILYWM YOLANDA Administration Azithromycin 500 mg 03/03/21 09:00 03/04/21 09:53 Azithromycin 250 Mg Tablet PO 03/04/21 10:59 500 mg DAILY YOLANDA Administration Benztropine Mesylate 1 mg 03/02/21 21:00 03/05/21 08:48 Benztropine Mesylate 1 Mg Tablet PO 1 mg BID YOLANDA Administration Ceftriaxone Sodium 1 gm 03/04/21 09:00 03/05/21 08:49 Ceftriaxone 1 Gm Vial 1 Gm Vial IM 03/07/21 08:59 1 gm DAILY YOLANDA Administration Dexamethasone Sodium Phosphate 4 mg 03/03/21 09:00 03/05/21 08:49 Dexamethasone Sod Phos 4 Mg/Ml Inj IM 4 mg DAILY YOLANDA Administration Escitalopram Oxalate 10 mg 03/03/21 09:00 03/05/21 08:49 Escitalopram Oxalate 10 Mg Tablet PO 10 mg DAILY YOLANDA Administration Ferrous Sulfate 324 mg 03/02/21 21:00 03/05/21 08:49 Ferrous Sulfate 324 Mg Tablet. PO 324 mg BID YOLANDA Administration CEFTRIAXONE/D5W 1 GM PREMIX 1 gm in 50 mls @ 75 mls/hr 03/02/21 12:30 03/03/21 09:02 Rocephin 1 Gm/50 Ml D5w IV 03/05/21 12:29 75 mls/hr DAILY YOLANDA Administration Azithromycin 500 mg/ Sodium 250 mls @ 125 mls/hr 03/02/21 13:30 03/02/21 15:05 Chloride IV 03/04/21 13:29 125 mls/hr DAILY YOLANDA Administration Sodium Chloride 1,000 mls @ 75 mls/hr 03/02/21 15:00 03/02/21 14:39 Sodium Chloride IV 03/03/21 04:19 75 mls/hr .[id number] YOLANDA Administration Levothyroxine Sodium 100 mcg 03/03/21 06:30 03/05/21 06:06 Levothyroxine Sodium 100 Mcg Tablet PO 100 mcg QDAC YOLANDA Administration Levothyroxine Sodium 25 mcg 03/03/21 06:30 03/05/21 06:06 Levothyroxine Sodium 25 Mcg Tablet PO 25 mcg QDAC YOLANDA Administration Lidocaine HCl 2.1 ml 03/04/21 09:00 03/05/21 08:49 Lidocaine Hcl/Pf 1% 5 Ml Vial IM 2.1 ml DAILY YOLANDA Administration Lorazepam 0.5 mg 03/02/21 14:43 03/05/21 08:49 Lorazepam 0.5 Mg Tablet PO 0.5 mg BID PRN Administration Anxiety Losartan Potassium 25 mg 03/02/21 21:00 03/03/21 21:54 Losartan Potassium 25 Mg Tablet PO Not Given BID YOLANDA Non-Formulary Medication 125 mcg 03/03/21 09:00 Levothyroxine [Synthroid] PO DAILY YOLANDA Omeprazole 20 mg 03/03/21 06:30 03/05/21 06:06 Omeprazole 20 Mg Capsule. PO 20 mg QDAC YOLANDA Administration Sodium Chloride 1 syr 03/02/21 12:27 03/04/21 05:42 0.9% Sodium Chloride 10 Ml Disp.Syrin IVF 1 syr PRN PRN Administration To flush IV Tramadol HCl 50 mg 03/03/21 09:00 03/05/21 08:49 Tramadol Hcl 50 Mg Tablet PO 50 mg DAILY YOLANDA Administration Trazodone HCl 100 mg 03/02/21 21:00 03/04/21 20:07 Trazodone Hcl 50 Mg Tablet PO 100 mg BEDTIME YOLANDA Administration Vital Signs: Temp Pulse Resp BP Pulse Ox 03/02/21 10:59 98.6 F 71 18 111/55 L 98 Discharge Plan Discharge Patient Disposition: ADMITTED INPATIENT Discharge Problem: Pneumonia ED Provider: ZACKERY CHRISTOPHER Condition: Good Physician Progress Note: []
[2021-03-02 11:44] LABS: BASOPHILS % (AUTO) 0.5 % (0.0-3.0); EOSINOPHILS # (AUTO) 0.1 K/ul (0.0-0.7); HEMATOCRIT 34.7 % (37.0-47.0); HEMOGLOBIN 10.9 g/dl (12.0-16.0); LYMPHOCYTES # (AUTO) 1.4 K/uL (0.60-3.4); LYMPHOCYTES % (AUTO) 22.5 (10.0-50.0); MEAN CORPUSCULAR HEMOGLOBIN 28.3 pg (27.0-31.0); MEAN CORPUSCULAR HGB CONC 31.4 (31.8-35.4); MEAN CORPUSCULAR VOLUME 90.1 fl (81.0-99.0); MONOCYTES # (AUTO) 0.9 K/uL (0.4-2.0); MONOCYTES % (AUTO) 14.1 (0-10); NEUTROPHILS # (AUTO) 3.7 K/ul (2.0-6.9); NEUTROPHILS % (AUTO) 60.9 % (42.2-75.2); PLATELET COUNT 245 10^3/uL (140-440); RDW COEFFICIENT OF VARIATION 13.8 % (11.6-14.8); RED BLOOD COUNT 3.85 10^6/ul (4.20-5.40); WHITE BLOOD COUNT 6.12 K/ul (4.6-10.2)
[2021-03-02 11:54] LABS: BORDETELLA PARAPERTUSSIS (PCR) NOT DETECTED (NOT DETECT); BORDETELLA PERTUSSIS (PCR) NOT DETECTED (NOT DETECT); CHLAMYDIA PNEUMONIAE (PCR) NOT DETECTED (NOT DETECT); CORONAVIRUS 229E (PCR) NOT DETECTED (NOT DETECT); CORONAVIRUS HKU1 (PCR) NOT DETECTED (NOT DETECT); CORONAVIRUS NL63 (PCR) NOT DETECTED (NOT DETECT); CORONAVIRUS OC43 (PCR) NOT DETECTED (NOT DETECT); HUMAN METAPNEUMOVIRUS (PCR) NOT DETECTED (NOT DETECT); HUMAN RHINOVIRUS/ENTEROV (PCR) NOT DETECTED (NOT DETECT); INFLUENZA B (PCR) NOT DETECTED (NOT DETECT); MYCOPLASMA PNEUMONIAE (PCR) NOT DETECTED (NOT DETECT); PARAINFLUENZA VIRUS 1 (PCR) NOT DETECTED (NOT DETECT); PARAINFLUENZA VIRUS 2 (PCR) NOT DETECTED (NOT DETECT); PARAINFLUENZA VIRUS 3 (PCR) NOT DETECTED (NOT DETECT); PARAINFLUENZA VIRUS 4 (PCR) NOT DETECTED (NOT DETECT); RESPIRATORY SYNCYTIAL V (PCR) NOT DETECTED (NOT DETECT); SARS_COV_2 (PCR) NOT DETECTED (NOT DETECT)
[2021-03-02 11:56] LABS: ABG O2 HGB 93.8 % (95-100); ABG PH 7.43 (7.35-7.45); BEecf -0.4 (-2.0-3.0); COHb 1.1 (0.5-1.5); HCO3 23.9 (21-28); MetHb 0.8 (0-1.5); sO2 94.1 % (94-98); tHb 10.9 g/dl (11.7-17.4)
[2021-03-02 11:57] LABS: ALANINE AMINOTRANSFERASE 25.4 U/L (0-35); ALBUMIN 3.77 g/dL (3.5-5.0); ALKALINE PHOSPHATASE 86.1 U/L (53-141); ASPARTATE AMINO TRANSFERASE 44.1 U/L (14-36); BILIRUBIN,TOTAL 0.52 mg/dL (0.2-1.3); BLOOD UREA NITROGEN 30.8 mg/dL (7-17); CARBON DIOXIDE 22.9 mmol/L (22-30.0); CHLORIDE 109.6 mmol/L (98-107); CREATININE 0.75 mg/dL (0.60-1.30); GLUCOSE 93.5 mg/dL (74-106); POTASSIUM 3.95 mmol/L (3.5-5.1); SODIUM 139.8 mmol/L (134.5-145); TOTAL PROTEIN 6.89 g/dL (6.3-8.2)
--- NOTE | 2021-03-02 12:03 | DI ---
EXAM: One-view chest HISTORY: Respiratory insufficiency TECHNIQUE: A single frontal view the chest was obtained. Compression 02/11/2021. FINDINGS: The heart is stable size. Opacities are suspected in the left lung base. The lungs are o therwise clear. There is no pleural separation. The osseous structures are normal. IMPRESSION: Atelectasis versus pneumonia suspected in the left lung base.
[2021-03-02] MEDS ORDERED: ZITHROMAX PO STA (12:27)
[2021-03-02 12:42] LABS: ADENOVIRUS (PCR) NOT DETECTED (NOT DETECT)
[2021-03-02 12:58] LABS: TROPONIN I < 0.012 ng/ml (0.0000-0.120)
[2021-03-02] MEDS ORDERED: SOLU-MEDROL 125 MG IVP SCH (13:00)
[2021-03-02] MEDS: ROCEPHIN 1 GM/50 ML D5W 1 GM/50 ML BAG IV SCH (13:26)
[2021-03-02] MEDS ORDERED: ZITHROMAX 500 MG in SODIUM CHLORIDE 250 ML IV SCH (13:30)
[2021-03-02] MEDS ORDERED: SODIUM CHLORIDE 1,000 ML IV SCH (15:00)
[2021-03-02 15:48] VITALS: BMI 26.2
[2021-03-02] MEDS ORDERED: TYLENOL PO PRN (16:18)
[2021-03-02 19:08] LABS: CLARITY,URINE CLEAR (CLEAR); COLOR,URINE YELLOW (YELLOW); GLUCOSE, URINE (UA) NEGATIVE (NEGATIVE); KETONES,URINE NEGATIVE (NEGATIVE); PH,URINE 5.5 (5-9); PROTEIN,URINE NEGATIVE (NEGATIVE)
[2021-03-02 19:09] LABS: BILIRUBIN,URINE NEGATIVE (NEGATIVE); LEUKOCYTE ESTERASE ,URINE NEGATIVE (NEGATIVE); NITRITE,URINE NEGATIVE (NEGATIVE); SQUAMOUS EPITHELIAL CELL,UR 0-2 (0-5); URINE WBC, MICROSCOPIC 0-2 (0-2); URINE, BLOOD Trace-intact (NEGATIVE); UROBILINOGEN,URINE 0.2 (0.2)
[2021-03-02] MEDS: DESYREL PO SCH (20:48)
[2021-03-02] MEDS: COZAAR PO SCH (20:48)
[2021-03-02] MEDS: COGENTIN PO SCH (20:48)
[2021-03-02] MEDS: FERROUS SULFATE PO SCH (20:48)
[2021-03-02] MEDS ORDERED: NON-FORMULARY MEDICATION (Ferrous Sulfate 325 MG tablet) PO SCH (21:00)
[2021-03-03 02:23] LABS: BASOPHILS % (AUTO) 0.6 % (0.0-3.0); EOSINOPHILS # (AUTO) 0.3 K/ul (0.0-0.7); EOSINOPHILS % (AUTO) 5.7 % (0.0-7.0); HEMATOCRIT 27.8 % (37.0-47.0); HEMOGLOBIN 9.1 g/dl (12.0-16.0); IMMATURE GRANULOCYTE % (AUTO) 0.2 % (0.0-5.0); LYMPHOCYTES # (AUTO) 1.6 K/uL (0.60-3.4); LYMPHOCYTES % (AUTO) 32.7 (10.0-50.0); MEAN CORPUSCULAR HEMOGLOBIN 29.4 pg (27.0-31.0); MEAN CORPUSCULAR HGB CONC 32.7 (31.8-35.4); MEAN CORPUSCULAR VOLUME 89.7 fl (81.0-99.0); MONOCYTES # (AUTO) 0.6 K/uL (0.4-2.0); MONOCYTES % (AUTO) 12.2 (0-10); NEUTROPHILS # (AUTO) 2.4 K/ul (2.0-6.9); NEUTROPHILS % (AUTO) 48.6 % (42.2-75.2); PLATELET COUNT 214 10^3/uL (140-440); RDW COEFFICIENT OF VARIATION 13.7 % (11.6-14.8); WHITE BLOOD COUNT 4.93 K/ul (4.6-10.2)
[2021-03-03 02:35] LABS: ALANINE AMINOTRANSFERASE 20.6 U/L (0-35); ALBUMIN 2.96 g/dL (3.5-5.0); ALKALINE PHOSPHATASE 71.2 U/L (53-141); BILIRUBIN,TOTAL 0.34 mg/dL (0.2-1.3); BLOOD UREA NITROGEN 26.2 mg/dL (7-17); CALCIUM 8.22 mg/dL (8.4-10.2); CARBON DIOXIDE 21.7 mmol/L (22-30.0); CHLORIDE 112.8 mmol/L (98-107); CREATININE 0.64 mg/dL (0.60-1.30); GLUCOSE 90.3 mg/dL (74-106); POTASSIUM 3.75 mmol/L (3.5-5.1); SODIUM 137.1 mmol/L (134.5-145); TOTAL PROTEIN 5.65 g/dL (6.3-8.2)
[2021-03-03 02:47] LABS: TROPONIN I < 0.012 ng/ml (0.0000-0.120)
[2021-03-03] MEDS: PRILOSEC PO SCH (05:46)
[2021-03-03] MEDS: SYNTHROID PO SCH ×2 (05:46→05:47)
--- NOTE | 2021-03-03 08:58 | PCM.PROG ---
Attending Provider: ATTENDING PROVIDER: Dr. SAM WHITE This patient is seen with Radha Ca, Nurse Practitioner. DATE OF SERVICE: 03/03/21 SUBJECTIVE: This 89 year old /WHITE F was hospitalized 03/02/21. The patient is lying in bed resting comfortably. Labs are stable. The patient is confused as usual. No agitation. REVIEW OF SYSTEMS: CONSTITUTIONAL: Weakness. No night sweats. No fatigue, malaise, lethargy. No fever or chills. HEENT: Eyes: No visual changes. No eye pain. No eye discharge. ENT: No runny nose. No epistaxis. No sinus pain. No odynophagia. No congestion. RESPIRATORY: Cough. No hemoptysis. No shortness of breath. CARDIOVASCULAR: No angina symptoms. No CHF symptoms. No atypical chest pain for CAD. No palpitations. No orthopnea.. GASTROINTESTINAL: No abdominal pain. No nausea or vomiting. No diarrhea or constipation. No hematemesis. No hematochezia. GENITOURINARY: No urgency. No frequency. No dysuria. No hematuria. No obstructive symptoms. No discharge. No pain. No significant abnormal bleeding. MUSCULOSKELETAL: No musculoskeletal pain; no joint swelling. NEUROLOGICAL: Awake, alert, confused. No headache. No neck pain. No syncope. No seizures. No dizziness. PSYCHIATRIC: Not anxious. No depression. No suicidal thoughts. No homicidal thoughts. SKIN: No rash. No lesions. No wounds. ENDOCRINE: No unexplained weight loss. No weight gain. HEMATOLOGIC/LYMPHATIC: No anemia. No purpura. No petechiae. No prolonged or excessive bleeding. No palpable lymph nodes. PHYSICAL EXAMINATION: GENERAL: The patient is awake, alert, not oriented, lying/sitting in bed in no distress. VITAL SIGNS: Temperature 98.2 F, Pulse 76, Respiratory Rate 18, BP 95/54, Pulse Ox 97% HEENT: Head normocephalic, atraumatic. Eyes: Extraocular muscles are intact. Pupils are equal, round and reactive to light and accommodation. Ears: No lesions. Nose appeared normal. Throat: No exudate or erythema. NECK: Supple. No JVD, no carotid bruit. No lymphadenopathy or thyromegaly. LUNGS: Diminished breath sounds. Clear to auscultation. Percussion note normal. Chest symmetrical. HEART: S1, S2, no S3. No murmurs. No cyanosis or clubbing. No ascites. Pulses: Dorsalis pedis and posterior tibial pulses +1 to +2 both sides. ABDOMEN: Soft. Non-tender. Bowel sounds active. No CVA tenderness. No mass felt. EXTREMITIES: No edema. Full range of motion of all extremities, equal. NEUROLOGIC: No focal deficit. Cranial nerves II through XII are grossly intact. No headache. No double vision. SKIN: Not dry. Intact. Turgor-normal. LYMPHATIC: No palpable lymph nodes/no lymphedema. MUSCULOSKELETAL: Normal joints with no swelling. Muscle tone is normal. LAB REVIEW: 03/03/21 02:20 03/03/21 02:20 03/03/21 02:20: WBC 4.93, RBC 3.10 L, Hgb 9.1 L, Hct 27.8 L D, MCV 89.7, MCH 29.4, MCHC 32.7, RDW Coeff of Larissa 13.7, Plt Count 214, Immature Gran % (Auto) 0.2, Neut % (Auto) 48.6, Lymph % (Auto) 32.7, [place] % (Auto) 12.2 H, Eos % (Auto) 5.7, Baso % (Auto) 0.6, Neut # (Auto) 2.4, Lymph # (Auto) 1.6, [place] # (Auto) 0.6, Eos # (Auto) 0.3, Baso # (Auto) 0.0, Immature Gran # (Auto) 0.0 03/03/21 02:20: Sodium 137.1, Potassium 3.75, Chloride 112.8 H, Carbon Dioxide 21.7 L, Anion Gap 6.35, BUN 26.2 H, Creatinine 0.64, Estimated GFR (MDRD) 87.00, BUN/Creatinine Ratio 40.93, Glucose 90.3, Calcium 8.22 L, Total Bilirubin 0.34, AST 41.0 H, ALT 20.6, Alkaline Phosphatase 71.2, Troponin I < 0.012, Total Protein 5.65 L, Albumin 2.96 L, Globulin 2.69, Albumin/Globulin Ratio 1.10 03/02/21 18:50: Urine Color Yellow, Urine Clarity Clear, Urine pH 5.5, Ur Specific Kellogg >1.030, Urine Protein Negative, Urine Glucose (UA) Negative, Urine Ketones Negative, Urine Blood Trace-intact H, Urine Nitrite Negative, Urine Bilirubin Negative, Urine Urobilinogen 0.2, Ur Leukocyte Esterase Negative, Urine Microscopic WBC 0-2, Ur Squamous Epith Cells 0-2 03/02/21 16:37: TSH 10.800 H 03/02/21 16:37: Free T4 1.47 03/02/21 12:56: C-Reactive Prot, Quant 37 H 03/02/21 12:56: Lactic Acid < 0.50 L 03/02/21 11:41: Puncture Site R rad, Base Excess -0.4, O2 Saturation 94.1, ABG pH 7.43, ABG pCO2 36.0, ABG pO2 69.0 L, ABG HCO3 23.9, ABG Total CO2 25.0 H, Tulio Test +, Hemoglobin 0.8, Oxyhemoglobin 93.8 L, Carboxyhemoglobin 1.1, Total Hemoglobin 10.9 L, O2 Delivery Device Ra, FiO2 % 21.0 03/02/21 11:38: Sodium 139.8, Potassium 3.95, Chloride 109.6 H, Carbon Dioxide 22.9, Anion Gap 11.25, BUN 30.8 H, Creatinine 0.75, Estimated GFR (MDRD) 73.00, BUN/Creatinine Ratio 41.06, Glucose 93.5, Calcium 9.00, Total Bilirubin 0.52, AST 44.1 H, ALT 25.4, Alkaline Phosphatase 86.1, Total Protein 6.89, Albumin 3.77, Globulin 3.12, Albumin/Globulin Ratio 1.20 03/02/21 11:38: WBC 6.12, RBC 3.85 L, Hgb 10.9 L, Hct 34.7 L, MCV 90.1, MCH 28.3, MCHC 31.4 L, RDW Coeff of Larissa 13.8, Plt Count 245, Immature Gran % (Auto) 0.0, Neut % (Auto) 60.9, Lymph % (Auto) 22.5, [place] % (Auto) 14.1 H, Eos % (Auto) 2.0, Baso % (Auto) 0.5, Neut # (Auto) 3.7, Lymph # (Auto) 1.4, [place] # (Auto) 0.9, Eos # (Auto) 0.1, Baso # (Auto) 0.0, Immature Gran # (Auto) 0.0 03/02/21 11:30: Procalcitonin < 0.05 03/02/21 11:30: Uric Acid 3.20, Troponin I < 0.012 03/02/21 11:20: Adenovirus (PCR) Not detected, B. pertussis DNA (PCR) Not detec marisa, B.parapertussis DNA PCR Not detected, C. pneumoniae DNA (PCR) Not detected, Coronavirus OC43 (PCR) Not detected, Coronavirus HKU1 (PCR) Not detected, Coronavirus 229E (PCR) Not detected, Coronavirus NL63 (PCR) Not detected, Human Metapneumovir PCR Not detected, Influenza Type A (PCR) Not detected, Influenza B (RT-PCR) Not detected, M. pneumoniae (PCR) Not detected, Parainfluenza 1 (PCR) Not detected, Parainfluenza 2 (PCR) Not detected, Parainfluenza 3 (PCR) Not detected, Parainfluenza 4 (PCR) Not detected, RSV (PCR) Not detected, Entero/Rhino (PCR) Not detected, SARS-CoV-2 (PCR) Not detected ASSESSMENT: Please see below. 1. Left lower lobe pneumonia. 2. Severe COPD. 3. End-stage dementia. 4. Chronic anemia. 5. Hypothyroidism 6. Chronic anemia 7. Dehydration - improved PLAN: 1. Continue IV antibiotics. Plan and coordination of the patient's care discussed in the presence of Promotional Model and nurse. CONDITION: Stable SCRIBED BY: JANEE BOURGEOIS Hand Or Machine Paster scribed while in presence of service performed by Dr. White/Radha Ca APRN on 03/03/21 ([id number])
[2021-03-03] MEDS ORDERED: NON-FORMULARY MEDICATION (Levothyroxine [Synthroid] 125 MCG tablet) PO SCH (09:00)
[2021-03-03] MEDS ORDERED: SODIUM CHLORIDE 1,000 ML IV SCH (09:00)
[2021-03-03] MEDS ORDERED: PROTONIX PO SCH (09:00)
[2021-03-03] MEDS: DECADRON IM SCH (09:02)
[2021-03-03] MEDS: ULTRAM PO SCH (09:02)
[2021-03-03] MEDS: LEXAPRO PO SCH (09:02)
[2021-03-03] MEDS: ZITHROMAX PO SCH (09:02)
[2021-03-03] MEDS: ROCEPHIN 1 GM/50 ML D5W 1 GM/50 ML BAG IV SCH (09:02)
[2021-03-03] MEDS: ASPIRIN CHEWABLE PO SCH (09:02)
[2021-03-03] MEDS: COZAAR PO SCH ×2 (09:02→21:54)
[2021-03-03] MEDS: FERROUS SULFATE PO SCH ×2 (09:02→21:57)
[2021-03-03] MEDS: COGENTIN PO SCH ×2 (09:02→21:57)
--- NOTE | 2021-03-03 10:12 | HP ---
DATE OF SERVICE: 03/02/21 HISTORY OF PRESENT ILLNESS: This is an 89-year-old white female who is a resident of [facility]. She has needed increasing oxygen via nasal cannula in order to keep sats above 90. She is now up to 3L so she was sent to the ER for shortness of breath. PAST MEDICAL HISTORY: Advanced dementia Hypertension COPD Hypothyroidism Anxiety Anemia Dementia with behavioral disturbances Bipolar disorder Failure to thrive with malnutrition History of falls GERD [place] B12 deficiency Recent UTI, was positive for E. coli on 02/12/21, finished 7 day course of Macrobid PAST SURGICAL HISTORY: None REVIEW OF SYSTEMS: CONSTITUTIONAL: Generalized weakness and fatigue. No night sweats. No malaise, lethargy. No fever or chills. HEENT: Eyes: No visual changes. No eye pain. No eye discharge. ENT: No runny nose. No epistaxis. No sinus pain. No sore throat. No odynophagia. No ear pain. No congestion. RESPIRATORY: Positive for shortness of breath and cough. No hemoptysis. CARDIOVASCULAR: No angina symptoms. No CHF symptoms. No atypical chest pain for CAD. No palpitations. No PND. No orthopnea. GASTROINTESTINAL: No abdominal pain. No nausea or vomiting. No diarrhea or constipation. No hematemesis. No hematochezia. GENITOURINARY: No urgency. No frequency. No dysuria. No hematuria. No obstructive symptoms. No discharge. No pain. No significant abnormal bleeding. MUSCULOSKELETAL: No musculoskeletal pain. No joint swelling. No arthritis. NEUROLOGICAL: Increased confusion. No headache. No neck pain. No syncope. No seizures. No dizziness. PSYCHIATRIC: Not anxious. No depression. No suicidal thoughts. No homicidal thoughts. SKIN: No rash. No lesions. No wounds. ENDOCRINE: No unexplained weight loss. No weight gain. HEMATOLOGIC/LYMPHATIC: No anemia. No purpura. No petechiae. No prolonged or excessive bleeding. No palpable lymph nodes. PERSONAL/FAMILY/SOCIAL HISTORY: She is . She is a resident of [facility]. She is a former smoker. MEDICATIONS: Trazodone 100 mg p.o. bedtime Famotidine - CA - Carb-Mag Hydrox 10-800-165 mg tablet, two each p.o. q.4hr p.r.n. Levothyroxine (Synthroid) 125 mcg p.o. daily Pantoprazole 20 mg p.o. daily Losartan 25 mg p.o. b.i.d. Cyanocobalamin (Vitamin B12) 1,000 mcg IJ monthly Benztropine 1 mg p.o. b.i.d. Aspirin 81 mg p.o. daily with meal Acetaminophen 325 mg two tab p.o. q.h p.r.n. Ferrous Sulfate 325 mg p.o. b.i.d. Escitalopram Oxalate 10 mg p.o. daily Tramadol 50 mg p.o. daily ALLERGIES: NKDA PHYSICAL EXAMINATION: GENERAL: Cachetic, fatigue. The patient is alert, not oriented to person, place or time. VITAL SIGNS: Temperature 98.6, heart rate 71, respirations 18, BP 111/55, pulse ox 98%. HEENT: Head normocephalic, atraumatic. Eyes: Extraocular muscles are intact. Pupils are equal, round and reactive to light and accommodation. Ears: No lesions. Nose appeared normal. Throat: No exudate or erythema. NECK: Supple. No JVD, no carotid bruit. No lymphadenopathy or thyromegaly. LUNGS: Diminished breath sounds bilaterally. Clear to auscultation. Percussion note normal. Chest symmetrical. HEART: S1, S2, no S3. No murmur. No cyanosis or clubbing. No ascites. Pulses: Dorsalis pedis and posterior tibial pulses +1 to +2 bilaterally. ABDOMEN: Soft. Nontender. Bowel sounds active. No CVA tenderness. No mass felt. EXTREMITIES: No edema. Full range of motion of all extremities, equal. NEUROLOGIC: No focal deficit. Cranial nerves II through XII are grossly intact. No headache, no double vision or headache. SKIN: Not dry. Intact. Turgor - normal. LYMPHATIC: No palpable lymph nodes/no lymphedema. MUSCULOSKELETAL: Normal joints with no swelling. Muscle tone is normal. White count 6.12, hemoglobin 10.9, hematocrit 34.7, platelets 245. Sodium 139, potassium 3.9, BUN 30.8, creatinine 0.75, glucose 93.5. ABG on room air 02 sat 94, pH 7.43, pc02 36, p02 69, bicarb 23.9. AST 44, ALT 25. Respiratory panel by PCR is negative. It is to be noted that she was positive for Covid back in August and had no severe illness. Chest x-ray showed atelectasis vs pneumonia in the left lung base. ASSESSMENT: 1. LEFT LOWER LOBE PNEUMONIA 2. SHORTNESS OF BREATH 3. GENERALIZED WEAKNESS 4. SEVERE COPD 5. ADVANCED DEMENTIA PLAN: 1. We will admit. 2. Routine telemetry orders. 3. CBC, CMP daily. 4. Continue all home medications. 5. T4, TSH. 6. Rocephin 1 gm IV daily. 7. Zithromax 500 mg p.o. daily times three days. 8. 4 mg Decadron IM daily. 9. Ativan 0.5 b.i.d. p.r.n. for anxiety. 10. UA. 11. She is on a pureed texture diet. 12. T4, TSH. 13. Oxygen at 1 to 2L. 14. Fall precautions. 15. Will follow closely. TIME SPENT: More than 70 minutes. MTDD
[2021-03-03] MEDS: ATIVAN PO PRN (17:57)
[2021-03-03] MEDS: DESYREL PO SCH (21:57)
[2021-03-04] MEDS: PRILOSEC PO SCH (05:41)
[2021-03-04] MEDS: SYNTHROID PO SCH ×2 (05:42)
[2021-03-04 05:56] LABS: ALANINE AMINOTRANSFERASE 23.5 U/L (0-35); ALBUMIN 3.27 g/dL (3.5-5.0); ALKALINE PHOSPHATASE 76.1 U/L (53-141); ASPARTATE AMINO TRANSFERASE 29.9 U/L (14-36); BASOPHILS % (AUTO) 0.6 % (0.0-3.0); BILIRUBIN,TOTAL 0.26 mg/dL (0.2-1.3); BLOOD UREA NITROGEN 23.3 mg/dL (7-17); CALCIUM 8.75 mg/dL (8.4-10.2); CARBON DIOXIDE 21.7 mmol/L (22-30.0); CHLORIDE 110.8 mmol/L (98-107); CREATININE 0.66 mg/dL (0.60-1.30); EOSINOPHILS % (AUTO) 0.2 % (0.0-7.0); GLUCOSE 102.9 mg/dL (74-106); HEMATOCRIT 28.3 % (37.0-47.0); IMMATURE GRANULOCYTE % (AUTO) 0.2 % (0.0-5.0); LYMPHOCYTES # (AUTO) 1.2 K/uL (0.60-3.4); LYMPHOCYTES % (AUTO) 24.2 (10.0-50.0); MEAN CORPUSCULAR HEMOGLOBIN 28.7 pg (27.0-31.0); MEAN CORPUSCULAR HGB CONC 31.8 (31.8-35.4); MEAN CORPUSCULAR VOLUME 90.1 fl (81.0-99.0); MONOCYTES # (AUTO) 0.6 K/uL (0.4-2.0); MONOCYTES % (AUTO) 11.7 (0-10); NEUTROPHILS # (AUTO) 3.1 K/ul (2.0-6.9); NEUTROPHILS % (AUTO) 63.1 % (42.2-75.2); PLATELET COUNT 257 10^3/uL (140-440); POTASSIUM 3.74 mmol/L (3.5-5.1); RDW COEFFICIENT OF VARIATION 13.2 % (11.6-14.8); RED BLOOD COUNT 3.14 10^6/ul (4.20-5.40); SODIUM 138.1 mmol/L (134.5-145); TOTAL PROTEIN 6.05 g/dL (6.3-8.2); WHITE BLOOD COUNT 4.96 K/ul (4.6-10.2)
--- NOTE | 2021-03-04 09:05 | PCM.PROG ---
Attending Provider: ATTENDING PROVIDER: Dr. SAM WHITE This patient is seen with Radha Ca, Nurse Practitioner. DATE OF SERVICE: 03/04/21 SUBJECTIVE: This 89 year old /WHITE F was hospitalized 03/02/21. The patient is restless and tearful this morning, confused as usual. She had agitation last night, Ativan helped. She is eating well. Blood pressure is low. REVIEW OF SYSTEMS: CONSTITUTIONAL: Weakness. No night sweats. No fatigue, malaise, lethargy. No fever or chills. HEENT: Eyes: No visual changes. No eye pain. No eye discharge. ENT: No runny nose. No epistaxis. No sinus pain. No odynophagia. No congestion. RESPIRATORY: No cough, no congestion. No hemoptysis. No shortness of breath. CARDIOVASCULAR: No angina symptoms. No CHF symptoms. No atypical chest pain for CAD. No palpitations. No orthopnea.. GASTROINTESTINAL: No abdominal pain. No nausea or vomiting. No diarrhea or constipation. No hematemesis. No hematochezia. GENITOURINARY: No urgency. No frequency. No dysuria. No hematuria. No obstructive symptoms. No discharge. No pain. No significant abnormal bleeding. MUSCULOSKELETAL: No musculoskeletal pain; no joint swelling. NEUROLOGICAL: Awake, alert, confused. No headache. No neck pain. No syncope. No seizures. No dizziness. PSYCHIATRIC: Restless, tearful. No suicidal thoughts. No homicidal thoughts. SKIN: No rash. No lesions. No wounds. ENDOCRINE: No unexplained weight loss. No weight gain. HEMATOLOGIC/LYMPHATIC: No anemia. No purpura. No petechiae. No prolonged or excessive bleeding. No palpable lymph nodes. PHYSICAL EXAMINATION: GENERAL: The patient is awake, alert, not oriented, lying/sitting in bed in no distress. VITAL SIGNS: Temperature 97.4 F, Pulse 64, Respiratory Rate 16, BP 81/58, Pulse Ox 100% HEENT: Head normocephalic, atraumatic. Eyes: Extraocular muscles are intact. Pupils are equal, round and reactive to light and accommodation. Ears: No lesions. Nose appeared normal. Throat: No exudate or erythema. NECK: Supple. No JVD, no carotid bruit. No lymphadenopathy or thyromegaly. LUNGS: Diminished breath sounds. Clear to auscultation. Percussion note normal. Chest symmetrical. HEART: S1, S2, no S3. No murmurs. No cyanosis or clubbing. No ascites. Pulses: Dorsalis pedis and posterior tibial pulses +1 to +2 both sides. ABDOMEN: Soft. Non-tender. Bowel sounds active. No CVA tenderness. No mass felt. EXTREMITIES: No edema. Full range of motion of all extremities, equal. NEUROLOGIC: No focal deficit. Cranial nerves II through XII are grossly intact. No headache. No double vision. SKIN: Not dry. Intact. Turgor-normal. LYMPHATIC: No palpable lymph nodes/no lymphedema. MUSCULOSKELETAL: Normal joints with no swelling. Muscle tone is normal. LAB REVIEW: 03/04/21 05:10 03/04/21 05:10 03/04/21 05:10: Sodium 138.1, Potassium 3.74, Chloride 110.8 H, Carbon Dioxide 21.7 L, Anion Gap 9.34, BUN 23.3 H, Creatinine 0.66, Estimated GFR (MDRD) 84.00, BUN/Creatinine Ratio 35.30, Glucose 102.9, Calcium 8.75, Total Bilirubin 0.26, AST 29.9, ALT 23.5, Alkaline Phosphatase 76.1, Total Protein 6.05 L, Albumin 3.27 L, Globulin 2.78, Albumin/Globulin Ratio 1.17 03/04/21 05:10: WBC 4.96, RBC 3.14 L, Hgb 9.0 L, Hct 28.3 L, MCV 90.1, MCH 28.7, MCHC 31.8, RDW Coeff of Larissa 13.2, Plt Count 257, Immature Gran % (Auto) 0.2, Neut % (Auto) 63.1, Lymph % (Auto) 24.2, [place] % (Auto) 11.7 H, Eos % (Auto) 0.2, Baso % (Auto) 0.6, Neut # (Auto) 3.1, Lymph # (Auto) 1.2, [place] # (Auto) 0.6, Eos # (Auto) 0.0, Baso # (Auto) 0.0, Immature Gran # (Auto) 0.0 ASSESSMENT: Please see below. 1. Left lower lobe pneumonia. 2. Chronic anemia. 3. Dementia with behavioral disturbances. PLAN: 1. Continue Rocephin, can give IM. 2. Hold Losartan. Plan and coordination of the patient's care discussed in the presence of Operating Room Rn and nurse. CONDITION: Stable SCRIBED BY: Violet JACKSONist scribed while in presence of service performed by Dr. White/Radha Ca APRN on 03/04/21 ([id number])
[2021-03-04] MEDS: DECADRON IM SCH (09:51)
[2021-03-04] MEDS: LIDOCAINE HCL 1% SDV IM SCH (09:52)
[2021-03-04] MEDS: ROCEPHIN 1 GM VIAL IM SCH (09:52)
[2021-03-04] MEDS: ASPIRIN CHEWABLE PO SCH (09:52)
[2021-03-04] MEDS: ULTRAM PO SCH (09:53)
[2021-03-04] MEDS: COGENTIN PO SCH ×2 (09:53→20:06)
[2021-03-04] MEDS: ATIVAN PO PRN (09:53)
[2021-03-04] MEDS: LEXAPRO PO SCH (09:53)
[2021-03-04] MEDS: FERROUS SULFATE PO SCH ×2 (09:53→20:06)
[2021-03-04] MEDS: ZITHROMAX PO SCH (09:53)
--- NOTE | 2021-03-04 10:44 | PN ---
DATE OF SERVICE: 03/02/2021 SUBJECTIVE: The patient was seen and examined with the Nurse Practitioner. The patient has evidence of pneumonia on chest x-ray, COVID negative and she is also dehydrated. She will be given IV fluids and IV antibiotics and steroids. The patient was seen and examined and the management was discussed with Nurse Practitioner. TIME SPENT: More than 30 minutes. Plan and coordination of the patient's care discussed in the presence of nurse. RAFITA
--- NOTE | 2021-03-04 11:43 | PN ---
DATE OF SERVICE: 03/03/21 SUBJECTIVE: The patient was seen and examined with the nurse practitioner. The patient's condition seems to have improved. Hydration status has improved. Will continue antibiotics and steroids. TIME SPENT: More than 30 minutes. Plan and coordination of the patient's care discussed in the presence of nurse. RAFITA
[2021-03-04 14:16] VITALS: TEMP 98.1
[2021-03-04] MEDS: DESYREL PO SCH (20:07)
[2021-03-05 05:26] LABS: BASOPHILS % (AUTO) 0.3 % (0.0-3.0); EOSINOPHILS % (AUTO) 0.3 % (0.0-7.0); HEMATOCRIT 30.1 % (37.0-47.0); HEMOGLOBIN 9.9 g/dl (12.0-16.0); IMMATURE GRANULOCYTE % (AUTO) 0.3 % (0.0-5.0); LYMPHOCYTES # (AUTO) 1.7 K/uL (0.60-3.4); LYMPHOCYTES % (AUTO) 29.6 (10.0-50.0); MEAN CORPUSCULAR HEMOGLOBIN 29.1 pg (27.0-31.0); MEAN CORPUSCULAR HGB CONC 32.9 (31.8-35.4); MEAN CORPUSCULAR VOLUME 88.5 fl (81.0-99.0); MONOCYTES # (AUTO) 0.5 K/uL (0.4-2.0); MONOCYTES % (AUTO) 8.8 (0-10); NEUTROPHILS # (AUTO) 3.5 K/ul (2.0-6.9); NEUTROPHILS % (AUTO) 60.7 % (42.2-75.2); PLATELET COUNT 277 10^3/uL (140-440); RDW COEFFICIENT OF VARIATION 13.4 % (11.6-14.8); WHITE BLOOD COUNT 5.78 K/ul (4.6-10.2)
[2021-03-05 05:35] VITALS: BP 115/67
[2021-03-05 05:50] LABS: ALANINE AMINOTRANSFERASE 24.7 U/L (0-35); ALBUMIN 3.34 g/dL (3.5-5.0); ALKALINE PHOSPHATASE 73.1 U/L (53-141); ASPARTATE AMINO TRANSFERASE 32.7 U/L (14-36); BILIRUBIN,TOTAL 0.21 mg/dL (0.2-1.3); BLOOD UREA NITROGEN 27.5 mg/dL (7-17); CALCIUM 8.73 mg/dL (8.4-10.2); CARBON DIOXIDE 25.1 mmol/L (22-30.0); CHLORIDE 110.7 mmol/L (98-107); CREATININE 0.7 mg/dL (0.60-1.30); GLUCOSE 97.3 mg/dL (74-106); POTASSIUM 3.99 mmol/L (3.5-5.1); SODIUM 139.8 mmol/L (134.5-145); TOTAL PROTEIN 6.16 g/dL (6.3-8.2)
[2021-03-05] MEDS: SYNTHROID PO SCH ×2 (06:06)
[2021-03-05] MEDS: PRILOSEC PO SCH (06:06)
[2021-03-05] MEDS: COGENTIN PO SCH (08:48)
[2021-03-05] MEDS: ASPIRIN CHEWABLE PO SCH (08:48)
[2021-03-05] MEDS: DECADRON IM SCH (08:49)
[2021-03-05] MEDS: LEXAPRO PO SCH (08:49)
[2021-03-05] MEDS: FERROUS SULFATE PO SCH (08:49)
[2021-03-05] MEDS: ROCEPHIN 1 GM VIAL IM SCH (08:49)
[2021-03-05] MEDS: ATIVAN PO PRN (08:49)
[2021-03-05] MEDS: LIDOCAINE HCL 1% SDV IM SCH (08:49)
[2021-03-05] MEDS: ULTRAM PO SCH (08:49)
--- NOTE | 2021-03-05 08:50 | PCM.PROG ---
Attending Provider: ATTENDING PROVIDER: Dr. SAM WHITE DATE OF SERVICE: 03/05/21 SUBJECTIVE: This 89 year old /WHITE F was hospitalized 03/02/21 with hypoxema, respiratory failure with COPD exacerbation. The patient improved with antibiotics and steroids. Appetite improved and is really good. Daughter is in the room. REVIEW OF SYSTEMS: CONSTITUTIONAL: No night sweats. No fatigue, malaise, lethargy. No fever or chills. HEENT: Eyes: No visual changes. No eye pain. No eye discharge. ENT: No runny nose. No epistaxis. No sinus pain. No odynophagia. No congestion. RESPIRATORY: No cough, no congestion. No hemoptysis. No shortness of breath. CARDIOVASCULAR: No angina symptoms. No CHF symptoms. No atypical chest pain for CAD. No palpitations. No orthopnea.. GASTROINTESTINAL: No abdominal pain. No nausea or vomiting. No diarrhea or constipation. No hematemesis. No hematochezia. GENITOURINARY: No urgency. No frequency. No dysuria. No hematuria. No obstructive symptoms. No discharge. No pain. No significant abnormal bleeding. MUSCULOSKELETAL: No musculoskeletal pain; no joint swelling. NEUROLOGICAL: Awake, alert, oriented to time, place and person. No headache. No neck pain. No syncope. No seizures. No dizziness. PSYCHIATRIC: Not anxious. No depression. No suicidal thoughts. No homicidal thoughts. SKIN: No rash. No lesions. No wounds. ENDOCRINE: No unexplained weight loss. No weight gain. HEMATOLOGIC/LYMPHATIC: No anemia. No purpura. No petechiae. No prolonged or excessive bleeding. No palpable lymph nodes. PHYSICAL EXAMINATION: GENERAL: The patient is awake, alert and oriented, lying/sitting in bed in no distress. VITAL SIGNS: Temperature 98.1 F, Pulse 67, Respiratory Rate 16, BP 115/67, Pulse Ox 99% HEENT: Head normocephalic, atraumatic. Eyes: Extraocular muscles are intact. Pupils are equal, round and reactive to light and accommodation. Ears: No lesions. Nose appeared normal. Throat: No exudate or erythema. NECK: Supple. No JVD, no carotid bruit. No lymphadenopathy or thyromegaly. LUNGS: Good air entry, good breath sounds. Clear to auscultation. Percussion note normal. Chest symmetrical. HEART: S1, S2, no S3. No murmurs. No cyanosis or clubbing. No ascites. Pulses: Dorsalis pedis and posterior tibial pulses +1 to +2 both sides. ABDOMEN: Soft. Non-tender. Bowel sounds active. No CVA tenderness. No mass felt. EXTREMITIES: No edema. Full range of motion of all extremities, equal. NEUROLOGIC: No focal deficit. Cranial nerves II through XII are grossly intact. No headache, no double vision or headache. SKIN: Warm and dry. Intact. Turgor-normal. LYMPHATIC: No palpable lymph nodes/no lymphedema. MUSCULOSKELETAL: Normal joints with no swelling. Muscle tone is normal. LAB REVIEW: 03/05/21 04:41 03/05/21 04:41 03/05/21 04:41: Sodium 139.8, Potassium 3.99, Chloride 110.7 H, Carbon Dioxide 25.1, Anion Gap 7.99, BUN 27.5 H, Creatinine 0.70, Estimated GFR (MDRD) 79.00, BUN/Creatinine Ratio 39.28, Glucose 97.3, Calcium 8.73, Total Bilirubin 0.21, AST 32.7, ALT 24.7, Alkaline Phosphatase 73.1, Total Protein 6.16 L, Albumin 3.34 L, Globulin 2.82, Albumin/Globulin Ratio 1.18 03/05/21 04:41: WBC 5.78, RBC 3.40 L, Hgb 9.9 L, Hct 30.1 L, MCV 88.5, MCH 29.1, MCHC 32.9, RDW Coeff of Larissa 13.4, Plt Count 277, Immature Gran % (Auto) 0.3, Neut % (Auto) 60.7, Lymph % (Auto) 29.6, [place] % (Auto) 8.8, Eos % (Auto) 0.3, Baso % (Auto) 0.3, Neut # (Auto) 3.5, Lymph # (Auto) 1.7, [place] # (Auto) 0.5, Eos # (Auto) 0.0, Baso # (Auto) 0.0, Immature Gran # (Auto) 0.0 ASSESSMENT: Please see below. 1. Acute pneumonitis, COPD with respiratory failure has resolved. 2. The patient has severe dementia. 3. The patient is bedridden. 4. Chronic anemia. PLAN: 1. Will discharge on tapering dose of steroids and antibiotics. 2. Keflex 500 mg b.i.d. times 5 days. 3. Prednisone 5 mg b.i.d. times 5 days. 4. Losartan one at night. Plan and coordination of the patient's care discussed in the presence of Warehouse Logistics Coordinator and nurse. CONDITION: Stable, prognosis is poor. SCRIBED BY: JANEE BOURGEOIS Data Coder Operator scribed while in presence of service performed by Dr. SAM WHITE on 03/05/21 ([id number])
--- NOTE | 2021-03-05 10:27 | CM.DICTOOL ---
ADMISSION: 03/02/21 13:15 DISCHARGE: MARCH 05, 2021 DATE OF SERVICE: 03/05/21 FINAL DIAGNOSIS PNEUMONIA, LEFT LOWER LOBE RESPIRATORY FAILURE, RESOLVED SEVERE COPD DEHYDRATION, IMPROVED HYPOTENSION DEMENTIA, END STAGE CHRONIC ANEMIA HYPERTENSION HYPOTHYROIDISM GERD ANXIETY LAST VITALS Temp Pulse Resp BP Pulse Ox 98.1 F 67 16 115/67 99 03/05/21 05:34 03/05/21 05:34 03/05/21 05:34 03/05/21 05:34 03/05/21 05:34 TAKE THESE MEDICATIONS AT HOME Acetaminophen (Acetaminophen 325 Mg Tablet) 650 mg PO Q4H PRN PRN Reason: mild to moderate pain Last Admin: 03/03/21 17:57 Dose: 650 mg Documented by: Aspirin (Aspirin 81 Mg Tab.Chew) [facility] [place] Admin: 03/05/21 08:48 Dose: 81 mg Documented by: Benztropine Mesylate (Benztropine Mesylate 1 Mg Tablet) 1 mg PO BID [facility] Last Admin: 03/05/21 08:48 Dose: 1 mg Documented by: KEFLEX 500 MG BID FOR 5 DAYS (NEW RX) LAST ADMIN: PREDNISONE 10 MG BID FOR 5 DAYS (NEW RX) LAST ADMIN: Escitalopram Oxalate (Escitalopram Oxalate 10 Mg Tablet) 10 mg PO DAILY [facility] Last Admin: 03/05/21 08:49 Dose: 10 mg Documented by: Ferrous Sulfate (Ferrous Sulfate 324 Mg Tablet.) 324 mg PO BID [facility] Last Admin: 03/05/21 08:49 Dose: 324 mg Documented by: Levothyroxine Sodium (Levothyroxine Sodium 125 Mcg Tablet) 125 mcg PO QDAC [facility] Last Admin: 03/05/21 06:06 Dose: 125 mcg Documented by: Lorazepam (Lorazepam 0.5 Mg Tablet) 0.5 mg PO DAILY (NEW) Reason: Anxiety Last Admin: 03/05/21 08:49 Dose: 0.5 mg Documented by: Losartan Potassium (Losartan Potassium 25 Mg Tablet) 25 mg PO AT BEDTIME [facility] Last Admin: 03/03/21 21:54 Dose: Not Given Documented by: PROTONIX 20 mg PO QDAC [facility] Last Admin: 03/05/21 06:06 Dose: 20 mg Documented by: Tramadol HCl (Tramadol Hcl 50 Mg Tablet) 50 mg PO DAILY [facility] Last Admin: 03/05/21 08:49 Dose: 50 mg Documented by: Trazodone HCl (Trazodone Hcl 50 Mg Tablet) 100 mg PO BEDTIME [facility] Last Admin: 03/04/21 20:07 Dose: 100 mg Documented by: VITAMIN B12 1000 MCG IM MONTHLY LAST ADMIN: ALLERGIES No Known Allergies Allergy (Verified 02/11/21 08:42) DISCONTINUED MEDICATIONS LOSARTAN 25 MG BID NEW PRESCRIPTIONS: KEFLEX 500 MG BID FOR 5 DAYS START 03-06-2021 PREDNISONE 10 MG BID FOR 5 DAYS WITH MEALS START 03-06-2021 ATIVAN 0.5 MG DAILY LOSARTAN 25 MG AT BEDTIME SMOKING: NOT APPLICABLE DISEASE SPECIFIC EDUCATION: PATIENT HAS DEMENTIA LAB REVIEW: 03/05/21 04:41 03/05/21 04:41 03/05/21 04:41: Sodium 139.8, Potassium 3.99, Chloride 110.7 H, Carbon Dioxide 25.1, Anion Gap 7.99, BUN 27.5 H, Creatinine 0.70, Estimated GFR (MDRD) 79.00, BUN/Creatinine Ratio 39.28, Glucose 97.3, Calcium 8.73, Total Bilirubin 0.21, AST 32.7, ALT 24.7, Alkaline Phosphatase 73.1, Total Protein 6.16 L, Albumin 3.34 L, Globulin 2.82, Albumin/Globulin Ratio 1.18 03/05/21 04:41: WBC 5.78, RBC 3.40 L, Hgb 9.9 L, Hct 30.1 L, MCV 88.5, MCH 29.1, MCHC 32.9, RDW Coeff of Larissa 13.4, Plt Count 277, Immature Gran % (Auto) 0.3, Neut % (Auto) 60.7, Lymph % (Auto) 29.6, [place] % (Auto) 8.8, Eos % (Auto) 0.3, Baso % (Auto) 0.3, Neut # (Auto) 3.5, Lymph # (Auto) 1.7, [place] # (Auto) 0.5, Eos # (Auto) 0.0, Baso # (Auto) 0.0, Immature Gran # (Auto) 0.0 PLAN: DISCHARGE TO [facility] CODE STATUS: DO NOT RESUSCITATE DIET: REGULAR, PUREED TEXTURE LIQUIDS: REGULAR DIETITIAN TO FOLLOW FOR OPTIMAL NUTRITIONAL INTAKES CRUSH MEDICATIONS ACTIVITY: PATIENT IS BEDRIDDEN VS DAILY FOR 1 WEEK, THEN WEEKLY OXYGEN SATURATION DAILY FOR 1 WEEK, THEN WEEKLY OXYGEN AT 2 LITERS PER NASAL CANNULA PRN SATURATION BELOW 90% CBC, CMP ON 03-08-2021 AND THEN MONTHLY TSH, FREE T4 EVERY 6 MONTHS LIPIDS EVERY 6 MONTHS INCONTINENT CARE EVERY 2 HOURS AND PRN TURN/REPOSITION EVERY 2 HOURS AND PRN DECUBITUS PRECAUTIONS MS. ANTONIO TO BE SEEN ON PRISON ROUNDS BY PIERRE DOMINGUEZ APRN/RODNEY FRANCO APRN OR DR. WHITE IN 10-14 DAYS MS. ANTONIO IS ALERT TO PERSON. SHE IS ANXIOUS AND FREQUENTLY FOUND CRYING. SHE MUMBLES OCCASIONALLY, BUT DOES NOT OFFER ANY DIRECT CONVERSATION OR ANSWERS TO QUESTIONS. SHE IS TOTALLY DEPENDENT ON NURSING STAFF FOR ALL CARE. SHE IS BEDRIDDEN AND IS USUALLY FOUND IN THE POSITION. MS. ANTONIO IS INCONTINENT OF BOWEL AND BLADDER. LAST BOWEL MOVEMENT WAS NOTED ON 03-04-2021. HYDRATION STATUS HAS IMPROVED. SKIN IS INTACT. MS. ANTONIO REQUIRES FEEDING BY NURSING STAFF OR THE DAUGHTER. MEAL INTAKES HAVE BEEN GOOD AT 75%. MD PIERRE STEARNS APRN ALY HANNAN, APRN
--- NOTE | 2021-03-09 08:57 | PN ---
DATE OF SERVICE: 03/04/21 SUBJECTIVE: The patient was seen and examined with the nurse practitioner. The patient's condition is stable. Pneumonia seems to be improved. She is confused. The patient is likely to be discharged to the [facility] on 03/05/21. TIME SPENT: More than 30 minutes. Plan and coordination of the patient's care discussed in the presence of nurse. RAFITA
--- NOTE | 2021-03-09 09:11 | DS ---
DATE OF SERVICE: 03/05/21 FINAL DIAGNOSIS: 1. PNEUMONIA, LEFT LOWER LOBE 2. RESPIRATORY FAILURE, RESOLVED 3. SEVERE COPD 4. DEHYDRATION, IMPROVED 5. HYPOTENSION 6. DEMENTIA, END STAGE 7. CHRONIC ANEMIA 8. HYPERTENSION 9. HYPOTHYROIDISM 10. GERD 11. ANXIETY LAST VITALS Temp Pulse Resp BP Pulse Ox 98.1 F 67 16 115/67 99 03/05/21 05:34 03/05/21 05:34 03/05/21 05:34 03/05/21 05:34 03/05/21 05:34 DISCHARGE INSTRUCTIONS: 1. DISCHARGE TO [facility]. 2. VS DAILY FOR 1 WEEK, THEN WEEKLY. 3. OXYGEN SATURATION DAILY FOR 1 WEEK, THEN WEEKLY, OXYGEN AT 2 LITERS PER NASAL CANNULA PRN SATURATION BELOW 90% 4. CBC, CMP ON 03-08-2021 AND THEN MONTHLY, TSH, FREE T4 EVERY 6 MONTHS, LIPIDS EVERY 6 MONTHS. 5. INCONTINENT CARE EVERY 2 HOURS AND PRN. 6. TURN/REPOSITION EVERY 2 HOURS AND PRN. 7. DECUBITUS PRECAUTIONS. 8. MS. ANTONIO TO BE SEEN ON ASSISTED ROUNDS BY PIERRE DOMINGUEZ APRN/RODNEY FRANCO APRN OR DR. WHITE IN 10-14 DAYS. MEDICATIONS AT DISCHARGE: Acetaminophen (Acetaminophen 325 Mg Tablet) 650 mg PO Q4H PRN PRN Reason: mild to moderate pain Last Admin: 03/03/21 17:57 Dose: 650 mg Documented by: Aspirin (Aspirin 81 Mg Tab.Chew) 81 mg PO DAILYWM [facility] Last Admin: 03/05/21 08:48 Dose: 81 mg Documented by: Benztropine Mesylate (Benztropine Mesylate 1 Mg Tablet) 1 mg PO BID [facility] Last Admin: 03/05/21 08:48 Dose: 1 mg Documented by: KEFLEX 500 MG BID FOR 5 DAYS (NEW RX) LAST ADMIN: PREDNISONE 10 MG BID FOR 5 DAYS (NEW RX) LAST ADMIN: Escitalopram Oxalate (Escitalopram Oxalate 10 Mg Tablet) 10 mg PO DAILY [facility] Last Admin: 03/05/21 08:49 Dose: 10 mg Documented by: Ferrous Sulfate (Ferrous Sulfate 324 Mg Tablet.) 324 mg PO BID [facility] Last Admin: 03/05/21 08:49 Dose: 324 mg Documented by: Levothyroxine Sodium (Levothyroxine Sodium 125 Mcg Tablet) 125 mcg PO QDAC [facility] Last Admin: 03/05/21 06:06 Dose: 125 mcg Documented by: Lorazepam (Lorazepam 0.5 Mg Tablet) 0.5 mg PO DAILY (NEW) Reason: Anxiety Last Admin: 03/05/21 08:49 Dose: 0.5 mg Documented by: Losartan Potassium (Losartan Potassium 25 Mg Tablet) 25 mg PO AT BEDTIME [facility] Last Admin: 03/03/21 21:54 Dose: Not Given Documented by: PROTONIX 20 mg PO QDAC [facility] Last Admin: 03/05/21 06:06 Dose: 20 mg Documented by: Tramadol HCl (Tramadol Hcl 50 Mg Tablet) 50 mg PO DAILY [facility] Last Admin: 03/05/21 08:49 Dose: 50 mg Documented by: Trazodone HCl (Trazodone Hcl 50 Mg Tablet) 100 mg PO BEDTIME [facility] Last Admin: 03/04/21 20:07 Dose: 100 mg Documented by: VITAMIN B12 1000 MCG IM MONTHLY LAST ADMIN: NEW PRESCRIPTIONS: KEFLEX 500 MG BID FOR 5 DAYS START 03-06-2021 PREDNISONE 10 MG BID FOR 5 DAYS WITH MEALS START 03-06-2021 ATIVAN 0.5 MG DAILY LOSARTAN 25 MG AT BEDTIME DISCONTINUED MEDICATIONS: LOSARTAN 25 MG BID DIET INSTRUCTIONS: REGULAR, PUREED TEXTURE LIQUIDS: REGULAR DIETITIAN TO FOLLOW FOR OPTIMAL NUTRITIONAL INTAKES CRUSH MEDICATIONS ACTIVITY: PATIENT IS BEDRIDDEN SMOKING: NOT APPLICABLE DISEASE SPECIFIC EDUCATION: PATIENT HAS DEMENTIA HOSPITAL COURSE: The patient was hospitalized with acute respiratory failure with hypoxemia, left lower lobe pneumonia. She was also dehydrated and hypotensive. The patient was treated with IV fluids, IV antibiotics, Rocephin and Zithromax. Condition has improved. Mental status has stayed the same. She has advanced dementia. She was discharged on Keflex and steroids to be taken for five days. The patient's daughter was more or less present daily in the room. The patient's appetite is fair, improved while she was in the hospital. She is DNR. CONDITION AT TIME OF DISCHARGE: Stable. TIME SPENT: More than 60 minutes. MTDD
--- NOTE | 2021-03-09 09:13 | PN ---
BILLING 03/02/21 ADMISSION DAY LEVEL 5 03/03/21 INTERMEDIATE 03/04/21 INTERMEDIATE 03/05/21 D IN DISCHARGE MTDD
== END 2021-03-05 12:05 | DRG 189 ==
LOC: ED 10:52 → MEDSURG A 13:15
PROVIDERS: ADMIT Internal Medicine; ATTEND Internal Medicine
DX: I95.9 Hypotension, unspecified; R53.1 Weakness; E03.9 Hypothyroidism, unspecified; R05 Cough; F03.90 Unspecified dementia, unspecified severity, without behavioral disturbance, psychotic disturbance, mood disturbance, and anxiety; D64.9 Anemia, unspecified; E86.0 Dehydration; Z20.822 Contact with and (suspected) exposure to COVID-19; F41.9 Anxiety disorder, unspecified; R06.00 Dyspnea, unspecified; J44.9 Chronic obstructive pulmonary disease, unspecified; K21.9 Gastro-esophageal reflux disease without esophagitis; J96.90 Respiratory failure, unspecified, unspecified whether with hypoxia or hypercapnia; I10 Essential (primary) hypertension